=== PATIENT | male | born 1960 | race Caucasian/White ===

== ENCOUNTER 2020-02-11 15:09 | Inpatient (IN) ==
--- NOTE | 2020-02-11 16:18 | XRay Report ---
INDICATION: Abdominal pain and bloating TECHNIQUE: Supine and upright abdomen. COMPARISON: None FINDINGS:Calcification with calcifications consistent with right upper pole renal calculi. No left renal stones identified Bowel gas pattern is unremarkable. No dilated gas-filled small bowel. No air-fluid levels. There is no pneumoperitoneum. No biliary or portal venous gas. No pneumatosis. No detectable appendicolith IMPRESSION: 1. Probable right renal calculus or calculi 2. Nonspecific and nonobstructive bowel gas pattern Interpreted and Authenticated by: Braxton Biggs 02/11/20
[2020-02-11] MEDS ORDERED: KETOROLAC 30 MG/ML VIAL IV ONE (16:42)
[2020-02-11] MEDS ORDERED: diphenhydrAMINE 50 MG/ML VIAL IV ONE (16:42)
[2020-02-11] MEDS ORDERED: PROCHLORPERAZINE 10 MG/2 ML VIAL IV ONE (16:42)
--- NOTE | 2020-02-11 16:50 | Emergency Department Note ---
HPI General Chief complaint: Abdominal Pain Stated complaint: abdominal pain Time Seen by Provider: 02/11/20 15:49 Source: patient Mode of arrival: ambulatory Limitations: no limitations History of Present Illness HPI Narrative: Narrative: 59-year old patient presenting to the [facility] emergency department with a c hief complaint of abdominal pain. Patient reports the pain is acute started today. Patient has had symptoms for several hours. Patient noting pain is sharp cramping sensation. Patient reporting pain is moderate to severe. Patient with exacerbating factors of nothing. Patient with ameliorating factors of nothing. Patient with associated symptoms of some nausea. Patient without associated symptoms of nausea, vomiting, diarrhea, decreased appetite, fever, blood in stool, hematemesis, constipation, dysuria, frequency, hematuria, weight loss, cough, shortness of breath, orthopnea, exertional component. Related Data Previous Rx's Medication Instructions Recorded sildenafil 100 mg tablet 50 mg PO QDAY PRN #30 tab 07/18/19 losartan 50 mg tablet 50 mg PO QDAY #30 tab 08/22/19 Allergies Allergy/AdvReac Type Severity Reaction Status Date / Time No Known Drug Allergies Allergy Verified 02/11/20 15:12 Review of Systems ROS ROS Narrative: Narrative: All systems ED: reviewed and negative except as stated. [facility] Narrative Patient History Narrative: Narrative: Medical/Surgical/Family History All Active Problems (Updated 02/11/20 @ 22:31 by Edwin Kim MD) Abdominal pain (Acute) Acute appendicitis (Acute) Microscopic hematuria (Acute) Hypertension, essential (Chronic) Chronic frontal sinusitis (Chronic) Epidural abscess (Chronic) Osteomyelitis (Chronic) Colon cancer screening (Acute) Erectile dysfunction (Chronic) Elevated blood pressure reading in office without diagnosis of hypertension (Chronic) Tobacco abuse (Chronic) Sinus infection (Chronic) High cholesterol (Chronic) Acid reflux (Chronic) 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 Tums helps. No alarm symptoms. Counseled on common triggers, and to avoid triggers. Counseled on alarm symptoms, and to let me know if he has any. Acute abscess of frontal sinus (Chronic) Blocked tear duct (Chronic) Chronic frontal sinusitis (Chronic) Epidural abscess (Chronic) Left Erectile dysfunction (Chronic) Some improvement with Viagra. Continue Viagra 50 to 100 mg as needed. High cholesterol (Chronic) Hypertension, essential (Chronic) Moderately well controlled per patient. Recently increased losartan to 50 mg daily. Low-sodium diet recommended. Patient to continue monitoring blood pressure at home, will call in 2 weeks to get logs. Continue losartan 50 mg daily, but I expect we will need to increase. Patient did not want to increase today. 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 Treated with 6 weeks of IV antibiotics. No significant sequelae. Sinus infection (Chronic) Tobacco abuse (Chronic) About 1 pack/day for about 45 years. Continues to smoke about 10 cigarettes/day currently CT lung cancer screening negative, will repeat annually. Counseled on smoking cessation, and patient desires to quit, but admits that he is not ready to quit completely. NicoDerm patch was prescribed, but he is not using it much. He knows to not smoke while he is using the patch. He continues to smoke. Surgical History History of surgery (Chronic ~2017) Releasing pressure off of the brain after a severe sinus infection. History of surgery (Chronic ~09/23/15) Neuronavigation, Left maxillary antrotomy. Bilateral ethmoidectomy, Bilateral middle turbinate reduction, Bilateral transnasal frontal sinusostomy, Left orbitiotomy with exploration, Left epidural exploration and biopsy, Left t ransorbital opening of the right frontal sinus Family History Father Colon cancer Liver cancer Mother Dementia Social History Smoking Status: Current every day smoker Alcohol Intake Frequency: does not drink Substance Use: crack/cocaine and other Exam Narrative Narrative: Vital signs are assessed for evidence of hemodynamic instability. General: Alert, interactive, appropriate Head: Atraumatic, normocephalic Eyes: Extraocular movements intact, sclera anicteric, no conjunctival injection Ears: Pinnae normal, no discharge Mouth: Oral mucosa moist, no acute swelling or evidence of infection Nares: No nasal discharge, patent bilaterally Neck: Trachea midline, full range of motion Chest: Symmetrical chest wall rise, breathing normally; nonlabored respirations Abdomen: Patient primarily tenderness to the mid abdomen across through the umbilical area, patient with exam suggestive of peritonitis, nondistended, no masses, no hepatosplenomegaly, no rebound, and no guarding Cardiovascular: Patient with excellent perfusion to the extremities; without tachycardia/bradycardia Skin: Patient without area of erythema, patient is without rash, no ascending lymphangitis or lymphadenopathy Extremities: Full range of motion joints, no obvious deformities Neuro: Alert, oriented x3, cranial nerves II through XII grossly intact, patient without lateralizing findings such as weakness, or abnormal reflexes Psychiatric: Normal affect, normal mood General Limitations: no limitations Course Vital Signs Vital signs: Vital Signs Temperature 97.3 F 02/11/20 15:09 Pulse Rate 86 02/11/20 15:09 Respiratory Rate 18 02/11/20 15:09 Blood Pressure 188/106 02/11/20 15:09 Pulse Oximetry (%) 98 02/11/20 15:09 Temperature 97.3 F 02/11/20 15:09 Pulse Rate 112 H 02/11/20 23:01 Respiratory Rate 18 02/11/20 23:01 Blood Pressure 152/95 02/11/20 23:01 Pulse Oximetry (%) 94 02/11/20 23:01 [facility] MDM Narrative Medical decision making narrative: Initial work-up for this issue included consideration for the following laboratory evaluation CBC, CMP, urinalysis as well as imaging. Differential diagnosis considered included: Obstruction, perforation, mesenteric ischemia, Crohn's disease, ulcerative colitis, viral gastroenteritis, spontaneous bacterial peritonitis, ketoacidosis, adrenal insufficiency, foodborne illness, IBS, constipation, abdominal compartment syndrome, abdominal migraine, chronic abdominal pain, hypercalcemia, hypothyroidism, pulmonary causes, epiploic appendagitis; pancreatitis, peptic ulcer disease, GERD, gastritis, functional dyspepsia, gastroparesis, appendicitis, diverticulitis, nephrolithiasis, pyelonephritis, acute urinary retention, cystitis, colitis. Patient was treated in the emergency department with Benadryl 50 mg IV, Compazine 10 mg IV, and Toradol [address] scan demonstrated appendicitis. Patient treated with Zosyn 4.5 g, Dilaudid 1 mg, and Zofran 4 mg IV. I discussed case with Dr. Ortiz the general surgeon and patient will be admitted for appendectomy. Lab Data Result diagrams: 02/11/20 16:26 02/11/20 16:26 Labs: Lab Results 02/11/20 02/11/20 Range/Units 16:26 16:26 WBC 21.0 H (4.5-11.0) K/mcL RBC 5.01 (4.50-5.90) M/mcL Hgb 14.7 (13.5-16.5) g/dL Hct 45.2 (41.0-55.0) % MCV 90.2 (80.0-100.0) fL MCH 29.3 (26.0-34.0) pg MCHC 32.5 (31.0-36.0) g/dL RDW 13.8 (11.5-14.5) % Plt Count 236 (140-440) K/mcL MPV 10.4 (7.4-10.4) fL Neut % (Auto) 82.6 H (38.0-78.0) % Lymph % (Auto) 9.5 L (15.0-49.0) % [place]age % (Auto) 7.3 (1.0-12.0) % Eos % (Auto) 0.4 (0.0-7.0) % Baso % (Auto) 0.2 (0.0-2.0) % Lymph # (Auto) 2.00 (1.50-4.80) K/mcL [place]age # (Auto) 1.53 H (0.10-0.90) K/mcL Eos # (Auto) 0.08 (0.00-0.70) K/mcL Baso # (Auto) 0.05 (0.00-0.20) K/mcL Absolute Neutrophils 17.34 H (1.80-8.00) K/mcL Sodium 142 (133-145) mmol/L Potassium 4.0 (3.3-5.1) mmol/L Chloride 101 (96-108) mmol/L Carbon Dioxide 29 (22-30) mmol/L Anion Gap 12.0 (8.0-16.0) BUN 12 (6-20) mg/dL Creatinine 0.8 (0.7-1.2) mg/dL GFR Calculation 98 Glucose 126 H (70-105) mg/dL Calcium 9.4 (8.6-10.4) mg/dL Total Bilirubin 0.3 (0.1-1.0) mg/dL AST 13 (<40) U/L ALT 17 (<40) U/L Alkaline Phosphatase 78 (39-117) U/L Total Protein 7.0 (5.9-8.4) gm/dL Albumin 4.1 (3.2-5.2) gm/dL Globulin 2.9 (2.2-3.7) gm/dL Albumin/Globulin Ratio 1.4 (1.0-2.3) Discharge Plan Patient/Caregiver Discharge Instructions 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 only: No Clinical Impression: Abdominal pain Qualifiers: Abdominal location: periumbilical Qualified Code(s): R10.33 - Periumbilical pain Acute appendicitis Qualifiers: Acute appendicitis type: with generalized peritonitis Appendicitis gangrene presence: without gangrene Appendicitis perforation presence: unspecified whether perforation present Appendicitis abscess presence: without abscess Qualified Code(s): K35.20 - Acute appendicitis with generalized peritonitis, without abscess Instructions: Abdominal Pain (ED) Patient Disposition: Xfer As Outpt/Obs ([facility]) Condition: Serious Follow up with: Braxton Ruiz DO [Primary Care Provider] - Prescriptions: No Action sildenafil 100 mg tablet 50 mg PO QDAY PRN (Reason: sexual activity) Qty: 30 RF: 1 losartan 50 mg tablet 50 mg PO QDAY Qty: 30 RF: 1
[2020-02-11 17:18] LABS: Basophils # (Auto) 0.05 K/mcL (0.00-0.20); Basophils % (Auto) 0.2 % (0.0-2.0); Eosinophils # (Auto) 0.08 K/mcL (0.00-0.70); Eosinophils % (Auto) 0.4 % (0.0-7.0); Hematocrit 45.2 % (41.0-55.0); Hemoglobin 14.7 g/dL (13.5-16.5); Lymphocytes % (Auto) 9.5 % (15.0-49.0); Mean Cell Volume 90.2 fL (80.0-100.0); Mean Corpuscular HGB Conc 32.5 g/dL (31.0-36.0); Mean Platelet Volume 10.4 fL (7.4-10.4); Monocytes # (Auto) 1.53 K/mcL (0.10-0.90); Monocytes % (Auto) 7.3 % (1.0-12.0); Neutrophils % (Auto) 82.6 % (38.0-78.0); Platelet Count 236 K/mcL (140-440); RBC 5.01 M/mcL (4.50-5.90); Red Cell Distribution Width 13.8 % (11.5-14.5)
[2020-02-11 17:43] LABS: ALT/SGPT 17 U/L (<40); AST/SGOT 13 U/L (<40); Albumin 4.1 gm/dL (3.2-5.2); Albumin/Globulin Ratio 1.4 (1.0-2.3); Alkaline Phosphatase 78 U/L (39-117); Bilirubin,Total 0.3 mg/dL (0.1-1.0); Blood Urea Nitrogen 12 mg/dL (6-20); Calcium 9.4 mg/dL (8.6-10.4); Carbon Dioxide 29 mmol/L (22-30); Chloride 101 mmol/L (96-108); Globulin 2.9 gm/dL (2.2-3.7); Glomerular Filtration Rate 98; Glucose 126 mg/dL (70-105)
--- NOTE | 2020-02-11 20:20 | Cat Scan Report ---
INDICATION: nephrolithiasis COMPARISON: None. TECHNIQUE: Axial images were obtained through the abdomen and pelvis. Sagittally and coronally reformatted images. FINDINGS: Lung bases:Mild density in the dependent portion of both lower lobes consistent with mild atelectasis. Lung bases are otherwise negative. No pleural fluid. No pericardial fluid. Liver:Negative to the limits of noncontrast enhanced examination. Liver contour is smooth without evidence for cirrhosis Gallbladder, bilary:Mildly calcified gallstones. No gallbladder wall thickening. No pericholecystic fluid. No dilated bile ducts Spleen:No splenomegaly Pancreas:No pancreatic mass. No peripancreatic abnormality Adrenal glands:Negative Kidneys, ureters, bladder: Nonobstructing stone or stones in the midpole of the right kidney. This stone or conglomeration of stones measures 13 x 10 x 11 mm. No significant hydronephrosis. There is also a 2 mm nonobstructing right midpole stone. There are no left renal calculi. No left hydronephrosis. There is no detectable renal mass on this noncontrast-enhanced examination. No hydroureter. No ureteral stone No bladder calculus Gastrointestinal:No significant diverticulosis or evidence for diverticulitis. No detectable colonic mass. There is prominent fecal material within the ascending colon. Constipation No mechanical small bowel obstruction. No small bowel dilatation. Appendix: The appendix is abnormal. There is an appendicolith in the proximal appendix. This measures approximately 10 mm in maximum diameter. Appendix distal to the appendicolith is distended and measures 18 mm. There is periappendiceal inflammatory change. There is no abscess. No significant periappendiceal fluid. Vascular:No abdominal aortic aneurysm Lymphatic:No retroperitoneal adenopathy. No significant mesenteric adenopathy. Mesentery, peritoneum:No free intraperitoneal fluid. No intra-abdominal abscess. No pneumoperitoneum Reproductive:Prostate is not significantly enlarged Musculoskeletal:No lumbar compression fractures. No lytic lesions. Sacrum, pelvis, hips are negative. There is degenerative disc disease at L5-S1. No anterior abdominal wall or inguinal hernia IMPRESSION: 1. Appendicolith and distended appendix with periappendiceal inflammatory change. Appearance is consistent with acute appendicitis. No definite CT evidence for ruptured appendix 2. Cholelithiasis 3. Nonobstructing right renal calculi 4. Probable constipation 5. Degenerative disc disease The exam was performed using radiation dose optimization techniques including, but not limited to, automated exposure control, adjustment of the mA and/or kV according to patient size and use of iterative reconstruction technique. Interpreted and Authenticated by: Braxton Biggs 02/11/20
[2020-02-11] MEDS ORDERED: PIPERACILLIN SODIUM/TAZOBACTAM 4.5 GM in DEXTROSE 5% IN WATER 50 ML IV ONE (22:21)
[2020-02-11] MEDS ORDERED: ONDANSETRON 4 MG/2 ML VIAL IV ONE (22:28)
[2020-02-11] MEDS ORDERED: HYDROmorphone 1 MG/ML SYRINGE IV ONE (22:28)
[2020-02-12] MEDS: PIPERACILLIN SODIUM/TAZOBACTAM 3.375 GM in DEXTROSE 5% IN WATER 50 ML IV SCH ×5 (01:00→23:42)
[2020-02-12] MEDS: 0.9 % SODIUM CHLORIDE 10 ML SYRINGE IV SCH ×4 (05:21→21:14)
--- NOTE | 2020-02-12 05:59 | XRay Report ---
INDICATION: preop TECHNIQUE: AP portable semiupright chest x-ray COMPARISON: None FINDINGS:Chest x-ray is somewhat suboptimal due to AP semiupright position. Routine PA and lateral chest x-ray recommended when clinically appropriate. Lungs:No focal pulmonary parenchymal consolidation or definite infiltrate. Heart, vascular:Heart appears enlarged but this is probably related to magnification. No evidence for congestive heart failure Mediastinum, kendall:No mediastinal widening. No hilar mass Pleura:No pleural fluid. No pleural-based mass or calcification Skeletal:Negative. IMPRESSION: No acute abnormality Interpreted and Authenticated by: Braxton Biggs 02/12/20
[2020-02-12] MEDS: HYDROmorphone 1 MG/ML SYRINGE IV PRN ×2 (07:52→21:11)
[2020-02-12] MEDS: DOCUSATE SODIUM 100 MG CAPSULE PO SCH ×2 (08:27→21:12)
[2020-02-12] MEDS: 0.9 % SODIUM CHLORIDE 1,000 ML IV SCH ×3 (08:28→21:12)
--- NOTE | 2020-02-12 12:22 | General Surg History&Physical ---
HPI History of Present Illness Patient information: Note initiated : 02/12/20 at 12:14 pm Service Date, if different from initiated Date: [] Patient: Ruddy Dominique a 59 y/o M admitted on 02/12/20 for abdominal pain. Chief Complaint: [] Chief complaint: abdominal pain with nausea History of present illness: Mr. Dominique is a 59 year old M admitted late last evening with complaint of diffuse abdominal pain of about 12 hours duration. Pain was initially in the lower abdomen and then localized to the right lower quadrant. He had nausea but no vomiting. He has not had diarrhea. He was febrile with a white count of 21,000. His temperature has been up to 101.6. He was admitted, hydrated and started on intravenous antibiotics. He states that he still feels poorly and has pain with any movement. CT of the abdomen shows l arge appendicolith in the proximal appendix with dilated distal appendix with Appendiceal tissue edema compatible with appendicitis. patient is counseled for laparoscopic appendectomy. Review of Systems All systems: reviewed and no additional remarkable complaints except as stated (patient had history of severe sinusitis with ethmoid abscess requiring surgical drainage in 2017) PFSH PFSH All Active Problems Abdominal pain (Acute) Acute appendicitis (Acute) Microscopic hematuria (Acute) Hypertension, essential (Chronic) Chronic frontal sinusitis (Chronic) Epidural abscess (Chronic) Osteomyelitis (Chronic) Colon cancer screening (Acute) Erectile dysfunction (Chronic) Elevated blood pressure reading in office without diagnosis of hypertension (Chronic) Tobacco abuse (Chronic) Sinus infection (Chronic) High cholesterol (Chronic) Acid reflux (Chronic) 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 Tums helps. No alarm symptoms. Counseled on common triggers, and to avoid triggers. Counseled on alarm symptoms, and to let me know if he has any. Acute abscess of frontal sinus (Chronic) Blocked tear duct (Chronic) Chronic frontal sinusitis (Chronic) Epidural abscess (Chronic) Left Erectile dysfunction (Chronic) Some improvement with Viagra. Continue Viagra 50 to 100 mg as needed. High cholesterol (Chronic) Hypertension, essential (Chronic) Moderately well controlled per patient. Recently increased losartan to 50 mg daily. Low-sodium diet recommended. Patient to continue monitoring blood pressure at home, will call in 2 weeks to get logs. Continue losartan 50 mg daily, but I expect we will need to increase. Patient did not want to increase today. 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 Treated with 6 weeks of IV antibiotics. No significant sequelae. Sinus infection (Chronic) Tobacco abuse (Chronic) About 1 pack/day for about 45 years. Continues to smoke about 10 cigarettes/day currently CT lung cancer screening negative, will repeat annually. Counseled on smoking cessation, and patient desires to quit, but admits that he is not ready to quit completely. NicoDerm patch was prescribed, but he is not using it much. He knows to not smoke while he is using the patch. He continues to smoke. Surgical History History of surgery (Chronic ~2016) Releasing pressure off of the brain after a severe sinus infection. History of surgery (Chronic ~09/23/15) Neuronavigation, Left maxillary antrotomy. Bilateral ethmoidectomy, Bilateral middle turbinate reduction, Bilateral transnasal frontal sinusostomy, Left orbitiotomy with exploration, Left epidural exploration and biopsy, Left transorbital opening of the right frontal sinus Family History Father Colon cancer Liver cancer Mother Dementia Social History marital status: occupational status: employed occupation: [employer] smoking status: Current every day smoker tobacco type: cigarettes per day: 2 pack-years: 25 alcohol intake frequency: does not drink substance use type: crack/cocaine and other details: Meth MEDS/ALLERGIES Home Medications and Allergies Home Medications Medication Instructions Recorded Confirmed Type sildenafil 100 mg tablet 50 mg PO QDAY PRN #30 tab 07/18/19 02/11/20 Rx losartan 50 mg tablet 50 mg PO QDAY #30 tab 08/22/19 02/11/20 Rx Allergies Allergy/AdvReac Type Severity Reaction Status Date / Time No Known Drug Allergies Allergy Verified 02/11/20 15:12 Physical Examination Vital Signs Vital signs: Temp Pulse Resp BP Pulse Ox 101.6 F H 120 H 20 106/60 92 02/12/20 07:54 02/12/20 07:57 02/12/20 07:57 02/12/20 07:54 02/12/20 07:57 General physical appearance General physical exam: well developed, well nourished, moderate distress and moderate pain Eyes Eye exam: PERRL and normal ocular movement ENT ENT exam: normal mucosa Head Head exam IM: Present atraumatic, normal inspection and normocephalic Neck Neck exam: no masses, no bruits, trachea midline, no lymphadenopathy and no venous distension Cardiovascular Cardiovascular exam IM: Present normal rate and rhythm, RRR, +S1 and +S2; Absent JVD and systolic murmur Respiratory Respiratory exam: normal expansion, normal respiratory effort and clear to auscultation Abdomen Abdomen: Present tender (right lower quadrant tenderness with guarding), bowel sounds (hypoactive bowel sounds), masses (no palpable masses) and guarding Integumentary Integumentary: Present no rash, no growths and no abnormal pigmentation Neurologic Neurologic: Present normal coordination and normal sensation; Absent memory loss Musculoskeletal Musculoskeletal: Present normal gait, normal posture and other Psychiatric Psychiatric: Present oriented to time, oriented to person, oriented to place, speech is normal, memory intact and other Results Labs Result diagrams: 02/11/20 16:26 02/11/20 16:26 Labs: Abnormal lab results 02/11/20 02/11/20 Range/Units 16:26 16:26 WBC 21.0 H (4.5-11.0) K/mcL Neut % (Auto) 82.6 H (38.0-78.0) % Lymph % (Auto) 9.5 L (15.0-49.0) % [place] # (Auto) 1.53 H (0.10-0.90) K/mcL Absolute Neutrophils 17.34 H (1.80-8.00) K/mcL Glucose 126 H (70-105) mg/dL Diabetes panel 02/11/20 Range/Units 16:26 Sodium 142 (133-145) mmol/L Potassium 4.0 (3.3-5.1) mmol/L Chloride 101 (96-108) mmol/L Carbon Dioxide 29 (22-30) mmol/L BUN 12 (6-20) mg/dL Creatinine 0.8 (0.7-1.2) mg/dL Glucose 126 H (70-105) mg/dL Calcium 9.4 (8.6-10.4) mg/dL AST 13 (<40) U/L ALT 17 (<40) U/L Alkaline Phosphatase 78 (39-117) U/L Total Protein 7.0 (5.9-8.4) gm/dL Albumin 4.1 (3.2-5.2) gm/dL Calcium panel 02/11/20 Range/Units 16:26 Calcium 9.4 (8.6-10.4) mg/dL Albumin 4.1 (3.2-5.2) gm/dL Pituitary panel 02/11/20 Range/Units 16:26 Sodium 142 (133-145) mmol/L Potassium 4.0 (3.3-5.1) mmol/L Chloride 101 (96-108) mmol/L Carbon Dioxide 29 (22-30) mmol/L BUN 12 (6-20) mg/dL Creatinine 0.8 (0.7-1.2) mg/dL Glucose 126 H (70-105) mg/dL Calcium 9.4 (8.6-10.4) mg/dL Adrenal panel 02/11/20 Range/Units 16:26 Sodium 142 (133-145) mmol/L Potassium 4.0 (3.3-5.1) mmol/L Chloride 101 (96-108) mmol/L Carbon Dioxide 29 (22-30) mmol/L BUN 12 (6-20) mg/dL Creatinine 0.8 (0.7-1.2) mg/dL Glucose 126 H (70-105) mg/dL Calcium 9.4 (8.6-10.4) mg/dL Total Bilirubin 0.3 (0.1-1.0) mg/dL AST 13 (<40) U/L ALT 17 (<40) U/L Alkaline Phosphatase 78 (39-117) U/L Total Protein 7.0 (5.9-8.4) gm/dL Albumin 4.1 (3.2-5.2) gm/dL All other labs normal. A/P Assessment and plan (1) Acute appendicitis: Status: Acute Qualifiers: Acute appendicitis type: with generalized peritonitis Appendicitis abscess presence: without abscess Appendicitis gangrene presence: without gangrene Appendicitis perforation presence: unspecified whether perforation present Qualified Code(s): K35.20 - Acute appendicitis with generalized peritonitis, without abscess (2) Hypertension, essential: Status: Chronic Comment: Moderately well controlled per patient. Recently increased losartan to 50 mg d aily. Low-sodium diet recommended. Patient to continue monitoring blood pressure at home, will call in 2 weeks to get logs. Continue losartan 50 mg daily, but I expect we will need to increase. Patient did not want to increase today. (3) Chronic frontal sinusitis: Status: Chronic Narrative A/P Narrative: patient is on Zosyn antibiotics and is continuing to be dehydrated. Patient counseled for laparoscopic appendectomy Time Spent With Patient Time: Total time spent is greater than 50% in coordination of care (as docum ented) at patient's floor/unit and/or counseling patient:
[2020-02-12] MEDS ORDERED: PROPOFOL 200 MG/20 ML VIAL IV ONE (13:06)
[2020-02-12] MEDS ORDERED: DEXAMETHASONE 10 MG/ML VIAL ONE (13:06)
[2020-02-12] MEDS ORDERED: KETOROLAC 30 MG/ML VIAL ONE (13:06)
[2020-02-12] MEDS ORDERED: GLYCOPYRROLATE 0.2 MG/ML VIAL IV ONE (13:06)
[2020-02-12] MEDS ORDERED: fentaNYL 100 MCG/2 ML VIAL IV ONE (13:06)
[2020-02-12] MEDS ORDERED: ONDANSETRON 4 MG/2 ML VIAL ONE (13:06)
[2020-02-12] MEDS ORDERED: MIDAZOLAM 2 MG/2 ML VIAL ONE (13:06)
[2020-02-12] MEDS ORDERED: PHENYLEPHRINE 10 MG/ML VIAL ONE (13:06)
[2020-02-12] MEDS ORDERED: LIDOCAINE HCL/PF 100 MG/5 ML SYRINGE IV ONE (13:06)
[2020-02-12] MEDS ORDERED: HYDROmorphone 1 MG/ML SYRINGE ONE (13:06)
[2020-02-12] MEDS ORDERED: ROCURONIUM 10 MG/ML ML IV ONE (13:06)
[2020-02-12] MEDS ORDERED: SUCCINYLCHOLINE 20 MG/ML ML IV ONE (13:06)
[2020-02-12] MEDS ORDERED: KETAMINE 100 MG/ML ML ONE (13:06)
[2020-02-12] MEDS ORDERED: SUGAMMADEX SODIUM 200 MG/2 ML VIAL IV ONE (13:06)
[2020-02-12] MEDS ORDERED: METHOCARBAMOL 1,000 MG/10 ML VIAL IV PRN (13:40)
[2020-02-12] MEDS ORDERED: HYDROmorphone 0.5 MG/0.5 ML SYRINGE IV PRN (13:40)
[2020-02-12] MEDS ORDERED: LACTATED RINGERS 250 ML IV PRN (13:40)
[2020-02-12] MEDS ORDERED: IPRATROPIUM/ALBUTEROL 3 ML AMPUL.NEB NEB PRN (13:40)
[2020-02-12] MEDS ORDERED: ACETAMINOPHEN 1,000 MG/100 ML BAG IV ONE (13:40)
[2020-02-12] MEDS ORDERED: MEPERIDINE 25 MG/ML SYRINGE IV PRN (13:40)
[2020-02-12] MEDS ORDERED: NALOXONE HCL 0.4 MG/ML VIAL IV PRN (13:40)
[2020-02-12] MEDS ORDERED: LABETALOL 5 MG/ML ML IV PRN (13:40)
[2020-02-12] MEDS ORDERED: FLUMAZENIL 0.1 MG/ML ML IV PRN (13:40)
[2020-02-12] MEDS ORDERED: fentaNYL 100 MCG/2 ML VIAL IV PRN (13:40)
[2020-02-12] MEDS ORDERED: BENZOCAINE/MENTHOL 1 LOZENGE PO PRN (13:40)
[2020-02-12] MEDS ORDERED: METOPROLOL TARTRATE 5 MG/5 ML VIAL IV PRN (13:40)
[2020-02-12] MEDS ORDERED: LACTATED RINGERS 1,000 ML IV SCH (13:45)
--- NOTE | 2020-02-12 14:21 | Brief Operative Note ---
Brief Operative Note Date of procedure: 02/12/20 Pre-op diagnosis: ACUTE APPENDICITIS Post-op diagnosis: other (ACUTE APPENDICITIS) Procedure: LAPAROSCOPIC APPENDECTOMY Grafts/Implants: No (ADRI DRAIN #10 X1) Anesthesia: GETA Findings: ACUTE GANGRENOUS APPENDICITIS Complications: none Surgeon: Alin Ortiz Estimated blood loss (cc): 25 Specimens Removed/Pathology: other (APPENDIX) Condition: stable Disposition: PACU
[2020-02-12] MEDS: SENNOSIDES 1 TABLET PO SCH (21:12)
[2020-02-13] MEDS: 0.9 % SODIUM CHLORIDE 1,000 ML IV SCH ×4 (04:19→21:54)
[2020-02-13] MEDS: 0.9 % SODIUM CHLORIDE 10 ML SYRINGE IV SCH ×7 (04:55→23:09)
[2020-02-13] MEDS: PIPERACILLIN SODIUM/TAZOBACTAM 3.375 GM in DEXTROSE 5% IN WATER 50 ML IV SCH ×4 (05:00→23:47)
[2020-02-13 07:59] LABS: Basophils # (Auto) 0.03 K/mcL (0.00-0.20); Basophils % (Auto) 0.2 % (0.0-2.0); Eosinophils # (Auto) 0.01 K/mcL (0.00-0.70); Eosinophils % (Auto) 0.1 % (0.0-7.0); Hematocrit 40.8 % (41.0-55.0); Hemoglobin 12.8 g/dL (13.5-16.5); Lymphocytes # (Auto) 1.82 K/mcL (1.50-4.80); Lymphocytes % (Auto) 9.1 % (15.0-49.0); Mean Cell Volume 92.5 fL (80.0-100.0); Mean Corpuscular HGB Conc 31.4 g/dL (31.0-36.0); Mean Platelet Volume 10.5 fL (7.4-10.4); Monocytes # (Auto) 1.35 K/mcL (0.10-0.90); Monocytes % (Auto) 6.8 % (1.0-12.0); Neutrophils % (Auto) 83.8 % (38.0-78.0); Platelet Count 192 K/mcL (140-440); RBC 4.41 M/mcL (4.50-5.90); Red Cell Distribution Width 14.2 % (11.5-14.5)
[2020-02-13] MEDS: DOCUSATE SODIUM 100 MG CAPSULE PO SCH ×2 (08:59→20:38)
[2020-02-13] MEDS: HYDROmorphone 1 MG/ML SYRINGE IV PRN ×6 (09:15→23:53)
[2020-02-13] MEDS: CALCIUM CARBONATE 500 MG TAB.CHEW CHEWED PRN ×2 (11:21→15:17)
--- NOTE | 2020-02-13 11:36 | General Surgery Progress Note ---
SUBJECTIVE Subjective Patient information: Note initiated : 02/13/20 at 11:31 am Service Date, if different from initiated Date: [] Patient: Ruddy Dominique 59 y/o M admitted on 02/12/20 for abdominal pain. Chief Complaint: [] Principal diagnosis: acute appendicitis Interval history: patient is doing well during the night. He's been somewhat agitated and had mild tachycardia but that has improved. He had maximum temperature of 99.6. He complains of incisional pain only. He he denies nausea. He's tolerated regular diet. White count 20,000, hemoglobin 12.8, hematocrit 40.8. Constitutional Vitals: Vital Signs Temp Pulse Resp BP Pulse Ox 98.7 F 103 H 18 125/70 91 02/13/20 07:26 02/13/20 07:41 02/13/20 07:41 02/13/20 07:26 02/13/20 07:41 Period Temp Pulse Resp BP Sys/Monahan Pulse Ox Last 24 Hr 98.0 F-99.6 F 92-120 - 99-143/61-81 91-98 Intake and Output 02/12/20 02/13/20 02/13/20 21:59 05:59 13:59 Intake Total 4695 1400 1178 Output Total 750 71 530 Balance 3945 1329 648 Weight 230 lb 12.8 oz Intake & Output: Intake & Output 02/12/20 02/13/20 02/13/20 21:59 05:59 13:59 Intake Total 4695 1400 1178 Output Total 750 71 530 Balance 3945 1329 648 Weight 230 lb 12.8 oz Intake: IV 1915 1100 698 Sodium Chloride 0.9% 1,000 ml @ 1765 1000 698 150 mls/hr IV .Q6H40M [facility] Rx#: [id number] Zosyn 3.375 gm In Dextrose 5% 50 100 in Water 50 ml @ 100 mls/hr IV Q6H [facility] Rx#:[id number] Oral 480 300 480 IV - Manual Only 2300 Output: Drainage 70 Lower Medial Abdomen 70 Drainage 130 30 Lower Medial Abdomen 130 30 Urine Catheter Amount 250 Void Amount 350 500 # of times incontinent of urine 1 Estimated Blood Loss 20 Other: Meal Dinner Breakfast Percent of Meal Consumed 100% 100% Feeding Ability Independent Assist with Tray Set Up Urine Appearance Clear Urine Color Dark Yellow Dark Yellow Head Head exam: Present atraumatic, normal inspection and normocephalic Eye Eye exam: Present EOMI and normal appearance Pupils: Present normal accommodation and PERRL ENT ENT exam: Present mucous membranes moist and normal exam Neck Neck exam: Present full ROM and normal inspection; Absent tenderness Respiratory Respiratory exam: Present decreased breath sounds, rales and rhonchi (scattered rhonchi which clear with cough) Cardiovascular Cardiovascular exam: Present normal rate and rhythm, RRR, +S1 and +S2; Absent JVD and rubs GI/Abdominal GI/Abdominal exam: Present normal bowel sounds, distended (mild distention) and tenderness (tenderness over the port sites) Extremities Exam Extremities exam: Present full ROM, normal inspection and neurovascular intact; Absent pedal edema and tenderness Back Exam Back exam: Present full ROM and normal inspection Neurological Exam Neurological exam: Present alert, CN II-XII intact, normal gait and reflexes normal Psychiatric Psychiatric exam: Present flat affect Skin Skin exam: Absent erythema and rash A/P Assessment and plan (1) Acute appendicitis: Status: Acute Qualifiers: Acute appendicitis type: with generalized peritonitis Appendicitis abscess presence: without abscess Appendicitis gangrene presence: without gangrene Appendicitis perforation presence: unspecified whether perforation present Qualified Code(s): K35.20 - Acute appendicitis with generalized peritonitis, without abscess (2) Hypertension, essential: Status: Chronic Comment: Moderately well controlled per patient. Recently increased losartan to 50 mg daily. Low-sodium diet recommended. Patient to continue monitoring blood pressure at home, will call in 2 weeks to get logs. Continue losartan 50 mg daily, but I expect we will need to increase. Patient did not want to increase today. (3) Methamphetamine use: Status: Acute Narrative A/P Narrative: patient is tolerating diet without difficulty. He will be continued on IV antibiotics. Discharge will be delayed until his leukocytosis is improved. Time Spent With Patient Time: Total time spent is greater than 50% in coordination of care (as documented) at patient's floor/unit and/or counseling patient:
[2020-02-13 16:26] LABS: Appearance,Urine CLEAR (Clear); Bilirubin,Urine Negative (Negative); Color,Urine YELLOW; Culture Indicated,Urine No; Glucose,Urine (UA) Negative (Negative); Ketones,Urine Negative (Negative); Leukocyte Esterase,Urine Negative /ug (Negative); Mucus,Urine FEW /hpf; Nitrate,Urine Negative (Negative); Other Crystals,Urine FEW /hpf; Protein,Urine 30 mg/dL (Negative); Specific Gravity,Urine 1.024 (1.000-1.035); Urine Hyaline Cast 3 /lph (0-2); Urine RBC 20 /hpf (0-1); Urine Squamous Epithelial Cell 0 /hpf (0-4); Urine WBC 2 /hpf (0-4)
[2020-02-13] MEDS: ACETAMINOPHEN 1,000 MG/100 ML BAG IV PRN (17:11)
[2020-02-13] MEDS ORDERED: 0.9 % SODIUM CHLORIDE 1,000 ML IV SCH (17:15)
[2020-02-13 20:35] LABS: Appearance,Urine CLEAR (Clear); Bilirubin,Urine Negative (Negative); Color,Urine YELLOW; Culture Indicated,Urine No; Glucose,Urine (UA) Negative (Negative); Ketones,Urine Negative (Negative); Leukocyte Esterase,Urine Negative /ug (Negative); Mucus,Urine FEW /hpf; Nitrate,Urine Negative (Negative); Protein,Urine 30 mg/dL (Negative); Specific Gravity,Urine 1.024 (1.000-1.035); Urine Hyaline Cast 1 /lph (0-2); Urine RBC 19 /hpf (0-1); Urine Squamous Epithelial Cell < 1 /hpf (0-4); Urine WBC 2 /hpf (0-4)
[2020-02-13] MEDS: SENNOSIDES 1 TABLET PO SCH (20:38)
[2020-02-13] MEDS: LOSARTAN 50 MG TABLET PO SCH (20:39)
[2020-02-13] MEDS: ONDANSETRON 4 MG/2 ML VIAL IV PRN (20:46)
[2020-02-13] MEDS: PANTOPRAZOLE 40 MG VIAL IV SCH (21:11)
[2020-02-13] MEDS: METOCLOPRAMIDE 10 MG/2 ML VIAL IV SCH (23:47)
[2020-02-14] MEDS: 0.9 % SODIUM CHLORIDE 1,000 ML IV SCH ×3 (00:26→07:53)
[2020-02-14] MEDS: LORazepam 2 MG/ML VIAL IV PRN ×2 (03:14→20:14)
[2020-02-14] MEDS: METOCLOPRAMIDE 10 MG/2 ML VIAL IV SCH ×4 (05:53→23:36)
[2020-02-14] MEDS: PIPERACILLIN SODIUM/TAZOBACTAM 3.375 GM in DEXTROSE 5% IN WATER 50 ML IV SCH ×4 (05:53→23:36)
[2020-02-14] MEDS: 0.9 % SODIUM CHLORIDE 10 ML SYRINGE IV SCH ×6 (05:53→20:14)
--- NOTE | 2020-02-14 06:34 | XRay Report ---
INDICATION: Fluid overload TECHNIQUE: AP portable chest x-ray COMPARISON: Previous examination dated 02/11/2020 FINDINGS: Lungs:Pulmonary parenchymal densities at both lung bases consistent with atelectasis. Pulmonary vascularity is mildly prominent consistent with pulmonary congestion. There is mild peribronchial thickening. There is no intralobular septal thickening and no focal alveolar infiltrates Heart, vascular:Cardiomegaly may be improved since 02/11/2020. Pulmonary vascularity remains mildly prominent Mediastinum, kendall:No mediastinal widening. No hilar mass Pleura:No pleural fluid. No pleural-based mass or calcification Skeletal:Negative. IMPRESSION: 1. Probable pulmonary congestion 2. Bilateral parenchymal densities most consistent with atelectasis Interpreted and Authenticated by: Braxton Biggs 02/14/20
[2020-02-14 06:53] LABS: Basophils # (Auto) 0.02 K/mcL (0.00-0.20); Basophils % (Auto) 0.1 % (0.0-2.0); Eosinophils # (Auto) 0.04 K/mcL (0.00-0.70); Eosinophils % (Auto) 0.2 % (0.0-7.0); Hematocrit 41.9 % (41.0-55.0); Hemoglobin 13.4 g/dL (13.5-16.5); Lymphocytes # (Auto) 1.61 K/mcL (1.50-4.80); Lymphocytes % (Auto) 9.1 % (15.0-49.0); Mean Cell Volume 89.9 fL (80.0-100.0); Monocytes # (Auto) 1.22 K/mcL (0.10-0.90); Monocytes % (Auto) 6.9 % (1.0-12.0); Neutrophils % (Auto) 83.7 % (38.0-78.0); Platelet Count 242 K/mcL (140-440); RBC 4.66 M/mcL (4.50-5.90); Red Cell Distribution Width 13.9 % (11.5-14.5); WBC 17.6 K/mcL (4.5-11.0)
[2020-02-14] MEDS ORDERED: FUROSEMIDE 40 MG/4 ML VIAL IV ONE (07:30)
[2020-02-14] MEDS ORDERED: IPRATROPIUM/ALBUTEROL 3 ML AMPUL.NEB NEB ONE ×2 (07:37→11:26)
[2020-02-14 07:47] LABS: ALT/SGPT 28 U/L (<40); AST/SGOT 36 U/L (<40); Albumin 3.1 gm/dL (3.2-5.2); Alkaline Phosphatase 100 U/L (39-117); Bilirubin,Direct < 0.2 mg/dL (<0.3); Bilirubin,Total 0.5 mg/dL (0.1-1.0); Blood Urea Nitrogen 20 mg/dL (6-20); Calcium 8.4 mg/dL (8.6-10.4); Carbon Dioxide 25 mmol/L (22-30); Chloride 104 mmol/L (96-108); Globulin 3.2 gm/dL (2.2-3.7); Glomerular Filtration Rate 104; Glucose 117 mg/dL (70-105); Lactate Dehydrogenase 232 U/L (135-225); Phosphorous 1.3 mg/dL (2.5-4.5); Triglycerides 160 mg/dL (<150)
[2020-02-14] MEDS: PANTOPRAZOLE 40 MG VIAL IV SCH ×2 (07:51→20:14)
[2020-02-14] MEDS: LOSARTAN 50 MG TABLET PO SCH (07:54)
[2020-02-14] MEDS: DOCUSATE SODIUM 100 MG CAPSULE PO SCH ×2 (07:54→20:13)
[2020-02-14] MEDS: POTASSIUM PHOSPHATE 40 MEQ in DEXTROSE 5% IN WATER 500 ML IV SCH ×2 (09:39→14:11)
[2020-02-14] MEDS ORDERED: MAGNESIUM SULFATE 4 GM/100 ML BAG IV ONE (10:00)
[2020-02-14] MEDS: IPRATROPIUM/ALBUTEROL 3 ML AMPUL.NEB NEB SCH ×4 (11:20→22:01)
--- NOTE | 2020-02-14 11:33 | General Surgery Progress Note ---
SUBJECTIVE Subjective Patient information: Note initiated : 02/14/20 at 11:27 am Service Date, if different from initiated Date: [] Patient: Ruddy Dominique 59 y/o M admitted on 02/13/20 for abdominal pain. Chief Complaint: [] Principal diagnosis: acute appendicitis Interval history: patient had increasing respiratory difficulty during the night and his sats dropped into the mid 80s. He was placed on supplemental oxygen and was improved. He was noted to have increase respiratory distress. Chest x- ray showed findings compatible with increased lung congestion and atelectasis felt to be due to volume overload. Blood gases pH 7.43, PC O2 40, PO2 69. White blood count 17,600, hemoglobin 13.4, hematocrit 41.9. Serum potassium is 3.9, phosphorus 1.3, magnesium 1.6. Maximum temperature is 100.4. Patient was started on duo nebs every 6 hours and was given IV Lasix. Since the Lasix infusion. He urine output has been 2850 cc. He is also receive potassium phosphate rider and magnesium rider. Clinically now he is better though he still has a coarse tubular breath sounds in both lung mayo, much worse on the right. The left. Constitutional Vitals: Vital Signs Temp Pulse Resp BP Pulse Ox 100.4 F H 122 H 22 114/70 94 02/14/20 07:15 02/14/20 08:00 02/14/20 08:00 02/14/20 07:15 02/14/20 08:00 Period Temp Pulse Resp BP Sys/Monahan Pulse Ox Last 24 Hr 97.4 F-100.4 F 94-122 14-22 114-184/70-112 89-94 Intake and Output 02/13/20 02/14/20 02/14/20 21:59 05:59 13:59 Intake Total 3300 450 290 Output Total 208 711 5327 Balance 2885 -505 -2720 Weight 231 lb 14.4 oz Intake & Output: Intake & Output 02/13/20 02/14/20 02/14/20 21:59 05:59 13:59 Intake Total 3300 450 290 Output Total 936 066 9503 Balance 2885 -505 -2720 Weight 231 lb 14.4 oz Intake: IV 3060 50 50 Sodium Chloride 0.9% 1,000 ml @ 2860 150 mls/hr IV .Q6H40M [facility] Rx#: [id number] Zosyn 3.375 gm In Dextrose 5% 100 50 50 in Water 50 ml @ 100 mls/hr IV Q6H [facility] Rx#:[id number] Oral 240 400 240 Output: Drainage 65 80 160 Lower Medial Abdomen 65 80 160 Void Amount 214 492 7093 Emesis 75 Other: Percent of Meal Consumed 50% Feeding Ability Independent Urine Appearance Clear Clear Clear Urine Color Dark Yellow Dark Yellow Pale Urine Odor Normal Normal Head Head exam: Present atraumatic, normal inspection and normocephalic Eye Eye exam: Present EOMI and normal appearance Pupils: Present normal accommodation and PERRL ENT ENT exam: Present mucous membranes moist and normal exam Respiratory Respiratory exam: Present decreased breath sounds, rales and rhonchi (scattered rhonchi which clear with cough) Cardiovascular Cardiovascular exam: Present normal rate and rhythm, RRR, +S1 and +S2; Absent JVD and rubs GI/Abdominal GI/Abdominal exam: Present normal bowel sounds, distended (mild distention) and tenderness (tenderness over the port sites) Extremities Exam Extremities exam: Present full ROM, normal inspection and neurovascular intact; Absent pedal edema and tenderness Back Exam Back exam: Present full ROM and normal inspection Neurological Exam Neurological exam: Present alert, CN II-XII intact, normal gait and reflexes normal Skin Skin exam: Absent erythema and rash A/P Assessment and plan (1) Acute appendicitis: Status: Acute Qualifiers: Acute appendicitis type: with generalized peritonitis Appendicitis abscess presence: without abscess Appendicitis gangrene presence: without gangrene Appendicitis perforation presence: unspecified whether perforation present Qualified Code(s): K35.20 - Acute appendicitis with generalized peritonitis, without abscess (2) At risk for fluid volume overload: Status: Acute (3) Methamphetamine use: Status: Acute (4) Hypertension, essential: Status: Chronic Comment: Moderately well controlled per patient. Recently increased losartan to 50 mg daily. Low-sodium diet recommended. Patient to continue monitoring blood pressure at home, will call in 2 weeks to get logs. Continue losartan 50 mg daily, but I expect we will need to increase. Patient did not want to increase today. Narrative A/P Narrative: received Lasix IV every 12 hours Increase duo nebs to every 4 hours Check blood gases at 6 PM today Time Spent With Patient Time: Total time spent is greater than 50% in coordination of care (as documented) at patient's floor/unit and/or counseling patient:
[2020-02-14] MEDS ORDERED: IPRATROPIUM/ALBUTEROL 3 ML AMPUL.NEB NEB SCH (13:00)
--- NOTE | 2020-02-14 14:47 | Surgical Pathology Report ---
Histology Microscopic Diagnosis Specimen A- APPENDIX, APPENDECTOMY: -- SUPPURATIVE ACUTE APPENDICITIS WITH TRANSMURAL INFLAMMATION, PERFORATION AND SEVERE ACUTE PERITONITIS. (ACP:sln) Gross Description Received in formalin labeled appendix, is an 8.4 cm in length and up to 1.3 cm in dimension pink-vega to yeung-vega ruptured appendix. Exudate is present on the exterior of the appendix specimen. The proximal margin is closed with a staple line. There are two ruptured areas, one that is 0.5 cm and the other is up to 1.5 cm in greatest dimension. Double Surface Operator portions submitted in one cassette. (KGW:adj) Electronically Signed Edgardo Garcia MD, FCAP Electronically Signed 02/14/2020 2:46 PM
[2020-02-14] MEDS: SENNOSIDES 1 TABLET PO SCH (20:13)
[2020-02-14] MEDS: FUROSEMIDE 40 MG/4 ML VIAL IV SCH (20:13)
[2020-02-15] MEDS: ACETAMINOPHEN 1,000 MG/100 ML BAG IV PRN (00:25)
[2020-02-15] MEDS: IPRATROPIUM/ALBUTEROL 3 ML AMPUL.NEB NEB SCH ×6 (03:31→22:57)
[2020-02-15] MEDS: 0.9 % SODIUM CHLORIDE 10 ML SYRINGE IV SCH ×6 (05:49→22:42)
[2020-02-15] MEDS: METOCLOPRAMIDE 10 MG/2 ML VIAL IV SCH ×3 (05:50→17:53)
[2020-02-15] MEDS: PIPERACILLIN SODIUM/TAZOBACTAM 3.375 GM in DEXTROSE 5% IN WATER 50 ML IV SCH ×3 (05:50→17:54)
--- NOTE | 2020-02-15 06:23 | XRay Report ---
INDICATION: follow-up of pulmonary congestion TECHNIQUE: AP portable upright chest x-ray COMPARISON: Previous examination dated 02/14/2020, 02/11/2020 FINDINGS: Lungs:Persistent parenchymal densities at both lung bases. Appearance remains consistent with bilateral atelectasis. Findings are unchanged since 02/14/2020 but new since 02/11/2020. No new parenchymal infiltrate Heart, vascular:Pulmonary vascularity is within normal limits. No evidence for significant pulmonary congestion at this time. No pulmonary edema. Mediastinum, kendall:No mediastinal widening. No hilar mass Pleura:No pleural fluid. No pleural-based mass or calcification Skeletal:Negative. IMPRESSION: 1. Bilateral pulmonary parenchymal densities consistent with atelectasis 2. Pulmonary vascularity is unremarkable. No evidence for pulmonary congestion or edema Interpreted and Authenticated by: Braxton Biggs 02/15/20
[2020-02-15 06:24] LABS: Basophils # (Auto) 0.07 K/mcL (0.00-0.20); Basophils % (Auto) 0.4 % (0.0-2.0); Eosinophils # (Auto) 0.29 K/mcL (0.00-0.70); Eosinophils % (Auto) 1.6 % (0.0-7.0); Hematocrit 37.5 % (41.0-55.0); Hemoglobin 12.1 g/dL (13.5-16.5); Lymphocytes # (Auto) 2.15 K/mcL (1.50-4.80); Lymphocytes % (Auto) 11.6 % (15.0-49.0); Mean Cell Volume 89.5 fL (80.0-100.0); Mean Corpuscular HGB Conc 32.3 g/dL (31.0-36.0); Mean Platelet Volume 10.4 fL (7.4-10.4); Monocytes # (Auto) 1.93 K/mcL (0.10-0.90); Monocytes % (Auto) 10.4 % (1.0-12.0); Platelet Count 233 K/mcL (140-440); RBC 4.19 M/mcL (4.50-5.90); Red Cell Distribution Width 13.9 % (11.5-14.5); WBC 18.6 K/mcL (4.5-11.0)
[2020-02-15 07:13] LABS: proBNP 258.6 pg/mL (<125.0)
[2020-02-15 07:17] LABS: ALT/SGPT 33 U/L (<40); AST/SGOT 28 U/L (<40); Albumin 2.6 gm/dL (3.2-5.2); Albumin/Globulin Ratio 0.8 (1.0-2.3); Alkaline Phosphatase 95 U/L (39-117); Bilirubin,Direct 0.2 mg/dL (<0.3); Bilirubin,Total 0.6 mg/dL (0.1-1.0); Blood Urea Nitrogen 15 mg/dL (6-20); Calcium 7.8 mg/dL (8.6-10.4); Carbon Dioxide 28 mmol/L (22-30); Chloride 99 mmol/L (96-108); Globulin 3.2 gm/dL (2.2-3.7); Glomerular Filtration Rate 98; Glucose 108 mg/dL (70-105); Lactate Dehydrogenase 272 U/L (135-225); Phosphorous 1.9 mg/dL (2.5-4.5); Triglycerides 150 mg/dL (<150); Uric Acid 3.2 mg/dL (2.5-8.0)
[2020-02-15] MEDS: DOCUSATE SODIUM 100 MG CAPSULE PO SCH ×2 (07:56→22:42)
[2020-02-15] MEDS: POTASSIUM CHLORIDE 20 MEQ TABLET PO SCH ×2 (07:56→17:53)
[2020-02-15] MEDS: LOSARTAN 50 MG TABLET PO SCH (07:56)
[2020-02-15] MEDS: POTASSIUM PHOSPHATE 40 MEQ in DEXTROSE 5% IN WATER 500 ML IV SCH ×2 (07:57→13:09)
[2020-02-15] MEDS: FUROSEMIDE 40 MG/4 ML VIAL IV SCH (07:57)
[2020-02-15] MEDS: PANTOPRAZOLE 40 MG VIAL IV SCH ×2 (07:57→19:47)
--- NOTE | 2020-02-15 10:47 | General Surgery Progress Note ---
SUBJECTIVE Subjective Patient information: Note initiated : 02/15/20 at 10:40 am Service Date, if different from initiated Date: [] Patient: Ruddy Dominique 59 y/o M admitted on 02/13/20 for abdominal pain. Chief Complaint: [] Principal diagnosis: acute appendicitis Interval history: patient is significantly improved. He has much less respiratory difficulty that his lungs are clearer. His pain is improved. Nausea has improved and he is having some flatus with small bowel movement. ELISEO drainage is serous. PH 7.50, PCO2 42, PO2 70 on 2 L via nasal cannula. Potassium 3.1, BUN 15, creatinine 0.8, phosphorus 1.9, proBNP 258.chest x-ray shows decreased pulmonary congestion but with major bilateral atelectasis without major infiltrate. Constitutional Vitals: Vital Signs Temp Pulse Resp BP Pulse Ox 97.4 F 102 H 18 107/68 96 02/15/20 06:55 02/15/20 07:29 02/15/20 07:29 02/15/20 06:55 02/15/20 07:29 Period Temp Pulse Resp BP Sys/Monahan Pulse Ox Last 24 Hr 96.7 F-100 F 57-108 - 102-138/64-84 91-98 Intake and Output 02/14/20 02/15/20 02/15/20 21:59 05:59 13:59 Intake Total 1129.0909 950 250 Output Total 1630 910 725 Balance -500.9091 40 -475 Weight 230 lb Intake & Output: Intake & Output 02/14/20 02/15/20 02/15/20 21:59 05:59 13:59 Intake Total 1129.0909 950 250 Output Total 1630 910 725 Balance -500.9091 40 -475 Weight 230 lb Intake: IV 709.0909 150 50 Zosyn 3.375 gm In Dextrose 5% 100 50 50 in Water 50 ml @ 100 mls/hr IV Q6H [facility] Rx#:[id number] Potassium Phosphate 40 Meq In 509.0909 Dextrose 5% in Water 500 ml @ 127.273 mls/hr IV Q4H [facility] Rx#: [id number] Oral 420 800 200 Output: Drainage 30 60 Lower Medial Abdomen 30 60 Void Amount 1600 850 725 Other: Urine Appearance Clear Clear Clear Urine Color Pale Dark Yellow Dark Yellow Urine Odor Normal Normal Normal Head Head exam: Present atraumatic, normal inspection and normocephalic Eye Eye exam: Present EOMI and normal appearance Pupils: Present normal accommodation and PERRL ENT ENT exam: Present mucous membranes moist and normal exam Neck Neck exam: Present full ROM and normal inspection; Absent tenderness Respiratory Respiratory exam: Present decreased breath sounds, rales and rhonchi (scattered rhonchi which clear with cough) Cardiovascular Cardiovascular exam: Present normal rate and rhythm, RRR, +S1 and +S2; Absent JVD and rubs GI/Abdominal GI/Abdominal exam: Present normal bowel sounds, distended (mild distention) and tenderness (tenderness over the port sites) Extremities Exam Extremities exam: Present full ROM, normal inspection and neurovascular intact; Absent pedal edema and tenderness Back Exam Back exam: Present full ROM and normal inspection Neurological Exam Neurological exam: Present alert, CN II-XII intact, normal gait and reflexes normal Psychiatric Psychiatric exam: Present flat affect Skin Skin exam: Absent erythema and rash A/P Assessment and plan (1) Acute appendicitis: Status: Acute Qualifiers: Acute appendicitis type: with generalized peritonitis Appendicitis abscess presence: without abscess Appendicitis gangrene presence: without gangrene Appendicitis perforation presence: unspecified whether perforation present Qualified Code(s): K35.20 - Acute appendicitis with generalized peritonitis, without abscess (2) Methamphetamine use: Status: Acute (3) Hypertension, essential: Status: Chronic Comment: Moderately well controlled per patient. Recently increased losartan to 50 mg daily. Low-sodium diet recommended. Patient to continue monitoring blood pressure at home, will call in 2 weeks to get logs. Continue losartan 50 mg daily, but I expect we will need to increase. Patient did not want to increase today. (4) Acute pulmonary edema with congestive heart failure: Status: Acute Narrative A/P Narrative: potassium phosphate rider. Start oral potassium. Chest x-ray in the morning. Advance diet Time Spent With Patient Time: Total time spent is greater than 50% in coordination of care (as documented) at patient's floor/unit and/or counseling patient:
--- NOTE | 2020-02-15 14:19 | Operative Note ---
DATE OF OPERATION: 02/13/2020 DATE OF PROCEDURE: 02/12/2020 PREOPERATIVE DIAGNOSIS: Acute appendicitis. POSTOPERATIVE DIAGNOSIS: Acute appendicitis. PROCEDURE: Laparoscopic appendectomy. SURGEON: Alin Ortiz M.D. FINDINGS: Acute gangrenous appendicitis. DESCRIPTION OF PROCEDURE: Under general anesthesia, the patient's abdomen was prepped and draped in a sterile field. Supraumbilical incision was made. Veress needle was inserted uneventfully. Abdomen was insufflated with 2.5 liters of CO2. A 12 mm port was placed. Laparoscope was placed. Under videoscopic guidance, a 5 mm port was placed in the suprapubic midline and a 12 mm port in the left lower quadrant. The patient was positioned in Trendelenburg position and rotated to the left. There was a moderate amount of purulent fluid in the pelvis and in the right gutter. Using blunt dissection, the cecum was mobilized and an acutely inflamed, gangrenous appendix was noted. It was bluntly dissected until the base could be delineated. It was grasped with a self-retaining grasper. The base and the mesoappendix were transected using the Endo DC stapler. The appendix was placed in an Endopouch and retrieved. Copious irrigation was carried out until it was clear. Because of the purulence, a #10 Alexandre drain was placed in the right gutter and pelvis. It was brought out through the suprapubic port site. CO2 was allowed to escape from the abdomen and the ports were removed. Fascia at the umbilicus was closed with interrupted 0 Vicryl. Skin incisions were closed with mariana. Tegaderm dressings were placed. The drain was secured with 2-0 nylon. The patient tolerated the procedure well. He was awakened, transferred to a bed, and taken to the postanesthetic care unit in satisfactory condition. LCS:jane Job ID: [id number] Doc ID: [id number] Alin Ortiz M.D.
[2020-02-15] MEDS: HYDROmorphone 1 MG/ML SYRINGE IV PRN (18:06)
[2020-02-15] MEDS: ONDANSETRON 4 MG/2 ML VIAL IV PRN (19:47)
[2020-02-15] MEDS: SENNOSIDES 1 TABLET PO SCH (22:36)
[2020-02-15] MEDS: LORazepam 2 MG/ML VIAL IV PRN (22:41)
[2020-02-15] MEDS: 0.9 % SODIUM CHLORIDE 1,000 ML IV SCH (22:43)
[2020-02-16] MEDS: PIPERACILLIN SODIUM/TAZOBACTAM 3.375 GM in DEXTROSE 5% IN WATER 50 ML IV SCH ×5 (00:56→23:28)
[2020-02-16] MEDS: METOCLOPRAMIDE 10 MG/2 ML VIAL IV SCH ×5 (00:57→23:29)
[2020-02-16] MEDS: IPRATROPIUM/ALBUTEROL 3 ML AMPUL.NEB NEB SCH ×6 (03:09→21:36)
[2020-02-16] MEDS: 0.9 % SODIUM CHLORIDE 10 ML SYRINGE IV SCH ×5 (05:06→20:46)
[2020-02-16 07:01] LABS: Basophils # (Auto) 0.05 K/mcL (0.00-0.20); Basophils % (Auto) 0.5 % (0.0-2.0); Eosinophils % (Auto) 0.9 % (0.0-7.0); Hematocrit 36.5 % (41.0-55.0); Lymphocytes # (Auto) 1.33 K/mcL (1.50-4.80); Lymphocytes % (Auto) 12.3 % (15.0-49.0); Mean Cell Volume 88.6 fL (80.0-100.0); Mean Corpuscular HGB Conc 32.9 g/dL (31.0-36.0); Mean Platelet Volume 10.5 fL (7.4-10.4); Monocytes % (Auto) 15.7 % (1.0-12.0); Neutrophils % (Auto) 70.6 % (38.0-78.0); Platelet Count 279 K/mcL (140-440); RBC 4.12 M/mcL (4.50-5.90); Red Cell Distribution Width 13.9 % (11.5-14.5); WBC 10.8 K/mcL (4.5-11.0)
[2020-02-16] MEDS: 0.9 % SODIUM CHLORIDE 1,000 ML IV SCH ×2 (07:39→17:46)
[2020-02-16] MEDS: POTASSIUM CHLORIDE 20 MEQ TABLET PO SCH ×2 (07:44→17:47)
[2020-02-16 07:58] LABS: ALT/SGPT 44 U/L (<40); AST/SGOT 34 U/L (<40); Albumin 2.8 gm/dL (3.2-5.2); Albumin/Globulin Ratio 0.8 (1.0-2.3); Alkaline Phosphatase 126 U/L (39-117); Bilirubin,Direct 0.3 mg/dL (<0.3); Bilirubin,Total 0.7 mg/dL (0.1-1.0); Blood Urea Nitrogen 16 mg/dL (6-20); Calcium 8.2 mg/dL (8.6-10.4); Carbon Dioxide 28 mmol/L (22-30); Chloride 100 mmol/L (96-108); Globulin 3.3 gm/dL (2.2-3.7); Glomerular Filtration Rate 104; Glucose 125 mg/dL (70-105); Lactate Dehydrogenase 233 U/L (135-225); Phosphorous 2.3 mg/dL (2.5-4.5); Triglycerides 136 mg/dL (<150); Uric Acid 2.8 mg/dL (2.5-8.0)
--- NOTE | 2020-02-16 08:39 | XRay Report ---
INDICATION: atelectasis TECHNIQUE: AP portable upright chest x-ray COMPARISON: Previous chest x-rays dated 02/15/2020, 02/14/2020 FINDINGS: Lungs:Density at both lung bases consistent with atelectasis. Appearance is mildly improved. No new focal pulmonary parenchymal infiltrate or mass Heart, vascular:Mild cardiomegaly. No pulmonary edema or pulmonary congestion Mediastinum, kendall:No mediastinal widening. No hilar mass Pleura:No pleural fluid. No pleural-based mass or calcification Skeletal:Negative. IMPRESSION: 1. Slight interval improvement 2. No new abnormality Interpreted and Authenticated by: Braxton Biggs 02/16/20
[2020-02-16] MEDS: FUROSEMIDE 40 MG/4 ML VIAL IV SCH (09:41)
[2020-02-16] MEDS: LOSARTAN 50 MG TABLET PO SCH (09:41)
[2020-02-16] MEDS: PANTOPRAZOLE 40 MG VIAL IV SCH ×2 (09:41→20:46)
[2020-02-16] MEDS: DOCUSATE SODIUM 100 MG CAPSULE PO SCH ×2 (09:42→20:46)
[2020-02-16] MEDS: HYDROmorphone 1 MG/ML SYRINGE IV PRN ×2 (10:47→19:46)
--- NOTE | 2020-02-16 13:03 | General Surgery Progress Note ---
SUBJECTIVE Subjective Patient information: Note initiated : 02/16/20 at 12:58 pm Service Date, if different from initiated Date: [] Patient: Ruddy Dominique 59 y/o M admitted on 02/13/20 for abdominal pain. Chief Complaint: [] Principal diagnosis: acute appendicitis Interval history: patient states that he feels much better. He denies having any respiratory difficulty. He still has a mild cough and audible wheezes. His pain is controlled. He has had flatus and at least 3 bowel movements. He denies nausea, though he did have some vomiting last evening. White blood count 10.8, hemoglobin 12, hematocrit 36.5, potassium 3.5, BUN 16, creatinine 0.7, phosphorus 2.3, magnesium 1.8. Chest x-ray shows bibasilar atelectasis but improved from last evening. Constitutional Vitals: Vital Signs Temp Pulse Resp BP Pulse Ox 97.1 F 85 18 111/65 95 02/16/20 11:25 02/16/20 11:25 02/16/20 11:25 02/16/20 11:25 02/16/20 11:25 Period Temp Pulse Resp BP Sys/Monahan Pulse Ox Last 24 Hr 97.1 F-99.2 F 85-111 18-20 108-130/65-80 92-97 Intake and Output 02/15/20 02/16/20 02/16/20 21:59 05:59 13:59 Intake Total 50 1650 1065 Output Total 760 300 550 Balance -710 1350 515 Weight 217 lb 6.4 oz Intake & Output: Intake & Output 02/15/20 02/16/20 02/16/20 21:59 05:59 13:59 Intake Total 50 1650 1065 Output Total 760 300 550 Balance -710 1350 515 Weight 217 lb 6.4 oz Intake: IV 50 50 825 Sodium Chloride 0.9% 1,000 ml @ 775 100 mls/hr IV .Q10H [facility] Rx#: [id number] Zosyn 3.375 gm In Dextrose 5% 50 50 50 in Water 50 ml @ 100 mls/hr IV Q6H [facility] Rx#:[id number] Oral 1600 240 Output: Drainage 110 50 Lower Medial Abdomen 110 50 Void Amount 650 300 500 Other: Urine Appearance Clear Clear Urine Color Tea Colored Tea Colored Tea Colored Urine Odor Normal Strong Stool Size Moderate Small Moderate Stool Color Brown Brown Black Stool Consistency Formed Loose Loose # Unmeasured Emesis 1 # Bowel Movements 1 # of times incontinent of 1 Bowels Head Head exam: Present atraumatic, normal inspection and normocephalic Eye Eye exam: Present EOMI and normal appearance Pupils: Present normal accommodation and PERRL ENT ENT exam: Present mucous membranes moist and normal exam Respiratory Respiratory exam: Present decreased breath sounds, rales and rhonchi (scattered rhonchi which clear with cough) Cardiovascular Cardiovascular exam: Present normal rate and rhythm, RRR, +S1 and +S2; Absent JVD and rubs GI/Abdominal GI/Abdominal exam: Present normal bowel sounds, distended (mild distention) and tenderness (tenderness over the port sites) Extremities Exam Extremities exam: Present full ROM, normal inspection and neurovascular intact; Absent pedal edema and tenderness Back Exam Back exam: Present full ROM and normal inspection Neurological Exam Neurological exam: Present alert, CN II-XII intact, normal gait and reflexes normal Psychiatric Psychiatric exam: Present flat affect Skin Skin exam: Absent erythema and rash A/P Assessment and plan (1) Acute appendicitis: Status: Acute Qualifiers: Acute appendicitis type: with generalized peritonitis Appendicitis abscess presence: without abscess Appendicitis gangrene presence: without gangrene Appendicitis perforation presence: unspecified whether perforation present Qualified Code(s): K35.20 - Acute appendicitis with generalized peritonitis, without abscess (2) Acute pulmonary edema with congestive heart failure: Status: Acute (3) Methamphetamine use: Status: Acute (4) Hypertension, essential: Status: Chronic Comment: Moderately well controlled per patient. Recently increased losartan to 50 mg daily. Low-sodium diet recommended. Patient to continue monitoring blood pressure at home, will call in 2 weeks to get logs. Continue losartan 50 mg daily, but I expect we will need to increase. Patient did not want to increase today. Narrative A/P Narrative: K-Phos rider 1. Magnesium rider 1. Recheck labs in the morning Time Spent With Patient Time: Total time spent is greater than 50% in coordination of care (as documented) at patient's floor/unit and/or counseling patient:
[2020-02-16] MEDS: SENNOSIDES 1 TABLET PO SCH (20:46)
[2020-02-17] MEDS: IPRATROPIUM/ALBUTEROL 3 ML AMPUL.NEB NEB SCH ×6 (03:33→22:15)
[2020-02-17] MEDS: 0.9 % SODIUM CHLORIDE 1,000 ML IV SCH ×2 (04:51→12:59)
[2020-02-17] MEDS: PIPERACILLIN SODIUM/TAZOBACTAM 3.375 GM in DEXTROSE 5% IN WATER 50 ML IV SCH ×4 (05:45→23:35)
[2020-02-17] MEDS: METOCLOPRAMIDE 10 MG/2 ML VIAL IV SCH ×4 (05:45→23:35)
[2020-02-17] MEDS: 0.9 % SODIUM CHLORIDE 10 ML SYRINGE IV SCH ×3 (05:45→21:30)
[2020-02-17] MEDS: HYDROmorphone 1 MG/ML SYRINGE IV PRN ×5 (06:22→22:40)
[2020-02-17] MEDS: POTASSIUM CHLORIDE 20 MEQ TABLET PO SCH ×2 (08:49→17:13)
[2020-02-17] MEDS: DOCUSATE SODIUM 100 MG CAPSULE PO SCH ×2 (08:50→21:30)
[2020-02-17] MEDS: LOSARTAN 50 MG TABLET PO SCH (08:50)
[2020-02-17] MEDS: FUROSEMIDE 40 MG/4 ML VIAL IV SCH (08:51)
[2020-02-17] MEDS: PANTOPRAZOLE 40 MG VIAL IV SCH ×2 (09:21→21:30)
[2020-02-17 10:51] LABS: Basophils # (Auto) 0.02 K/mcL (0.00-0.20); Basophils % (Auto) 0.2 % (0.0-2.0); Eosinophils # (Auto) 0.29 K/mcL (0.00-0.70); Eosinophils % (Auto) 3.1 % (0.0-7.0); Hematocrit 36.2 % (41.0-55.0); Hemoglobin 11.7 g/dL (13.5-16.5); Lymphocytes # (Auto) 2.09 K/mcL (1.50-4.80); Lymphocytes % (Auto) 22.3 % (15.0-49.0); Mean Cell Volume 90.5 fL (80.0-100.0); Mean Corpuscular HGB Conc 32.3 g/dL (31.0-36.0); Mean Platelet Volume 10.4 fL (7.4-10.4); Monocytes # (Auto) 1.45 K/mcL (0.10-0.90); Monocytes % (Auto) 15.4 % (1.0-12.0); Platelet Count 320 K/mcL (140-440); Red Cell Distribution Width 14.1 % (11.5-14.5); WBC 9.4 K/mcL (4.5-11.0)
[2020-02-17 11:01] LABS: ALT/SGPT 37 U/L (<40); AST/SGOT 25 U/L (<40); Albumin 2.5 gm/dL (3.2-5.2); Albumin/Globulin Ratio 0.7 (1.0-2.3); Alkaline Phosphatase 122 U/L (39-117); Bilirubin,Direct 0.3 mg/dL (<0.3); Bilirubin,Total 0.7 mg/dL (0.1-1.0); Blood Urea Nitrogen 15 mg/dL (6-20); Carbon Dioxide 27 mmol/L (22-30); Chloride 104 mmol/L (96-108); Globulin 3.5 gm/dL (2.2-3.7); Glomerular Filtration Rate 104; Glucose 114 mg/dL (70-105); Lactate Dehydrogenase 233 U/L (135-225); Phosphorous 2.3 mg/dL (2.5-4.5); Triglycerides 142 mg/dL (<150); Uric Acid 2.6 mg/dL (2.5-8.0)
--- NOTE | 2020-02-17 12:05 | General Surgery Progress Note ---
SUBJECTIVE Subjective Patient information: Note initiated : 02/17/20 at 12:05 pm Service Date, if different from initiated Date: [] Patient: Ruddy Dominique 59 y/o M admitted on 02/13/20 for abdominal pain. Chief Complaint: [] Principal diagnosis: acute appendicitis Interval history: patient feels much better. He is still weak. His temperature is controlled. He had some nausea earlier today but that has resolved. He is having flatus and bowel movements. He still has mild abdominal distention. White blood count 9.4, hemoglobin 11.7, hematocrit 36, potassium 4, phosphorus 2.. Constitutional Vitals: Vital Signs Temp Pulse Resp BP Pulse Ox 97.7 F 88 18 118/69 96 02/17/20 06:53 02/17/20 11:08 02/17/20 11:08 02/17/20 06:53 02/17/20 08:00 Period Temp Pulse Resp BP Sys/[place] Pulse Ox Last 24 Hr 97.7 F-99.6 F 79-102 14-91 97-122/56-77 90-98 Intake and Output 02/16/20 02/17/20 02/17/20 21:59 05:59 13:59 Intake Total 1350 1200 350 Output Total 15 250 615 Balance 1335 950 -265 Weight 222 lb 11.2 oz Intake & Output: Intake & Output 02/16/20 02/17/20 02/17/20 21:59 05:59 13:59 Intake Total 1350 1200 350 Output Total 15 250 615 Balance 1335 950 -265 Weight 222 lb 11.2 oz Intake: IV 1050 1050 50 Sodium Chloride 0.9% 1,000 ml @ 1000 1000 100 mls/hr IV .Q10H AALIYAH Rx#: [id number] Zosyn 3.375 gm In Dextrose 5% 50 50 50 in Water 50 ml @ 100 mls/hr IV Q6H AALIYAH Rx#:[id number] Oral 300 150 300 Output: Drainage 50 Lower Medial Abdomen 50 Drainage 15 15 Lower Medial Abdomen 15 15 Void Amount 200 600 Other: Meal Dinner Breakfast Percent of Meal Consumed 5% 0% Feeding Ability Independent Independent Urine Appearance Clear Clear Urine Color [place] Bright Yellow Urine Odor Strong Stool Size Moderate Stool Color Black Stool Consistency Loose Head Head exam: Present atraumatic, normal inspection and normocephalic Eye Eye exam: Present EOMI and normal appearance Pupils: Present normal accommodation and PERRL ENT ENT exam: Present mucous membranes moist and normal exam Neck Neck exam: Present full ROM and normal inspection; Absent tenderness Respiratory Respiratory exam: Present normal respiratory exam and CTAB; Absent accessory muscle use, rales, rhonchi and wheezes Cardiovascular Cardiovascular exam: Present normal rate and rhythm, RRR, +S1 and +S2 GI/Abdominal GI/Abdominal exam: Present normal bowel sounds, soft and distended; Absent tenderness Extremities Exam Extremities exam: Present full ROM, normal inspection and neurovascular intact; Absent pedal edema and tenderness Back Exam Back exam: Present full ROM and normal inspection Neurological Exam Neurological exam: Present alert, CN II-XII intact, normal gait and reflexes normal Psychiatric Psychiatric exam: Present flat affect Skin Skin exam: Absent erythema and rash A/P Assessment and plan (1) Acute appendicitis: Status: Acute Qualifiers: Acute appendicitis type: with generalized peritonitis Appendicitis abscess presence: without abscess Appendicitis gangrene presence: without gangrene Appendicitis perforation presence: unspecified whether perforation present Qualified Code(s): K35.20 - Acute appendicitis with generalized peritonitis, without abscess (2) Acute pulmonary edema with congestive heart failure: Status: Acute (3) Methamphetamine use: Status: Acute (4) Hypertension, essential: Status: Chronic Comment: Moderately well controlled per patient. Recently increased losartan to 50 mg daily. Low-sodium diet recommended. Patient to continue monitoring blood pressure at home, will call in 2 weeks to get logs. Continue losartan 50 mg daily, but I expect we will need to increase. Patient did not want to increase today. Narrative A/P Narrative: patient is significantly improved. We'll continue present treatment with plans for discharge tomorrow on oral antibiotics. Time Spent With Patient Time: Total time spent is greater than 50% in coordination of care (as documented) at patient's floor/unit and/or counseling patient:
[2020-02-17] MEDS: CALCIUM CARBONATE 500 MG TAB.CHEW CHEWED PRN (13:04)
[2020-02-17] MEDS: SENNOSIDES 1 TABLET PO SCH (21:30)
[2020-02-18] MEDS: HYDROmorphone 1 MG/ML SYRINGE IV PRN ×2 (02:18→08:31)
[2020-02-18] MEDS: 0.9 % SODIUM CHLORIDE 1,000 ML IV SCH ×2 (02:21→16:44)
[2020-02-18] MEDS: IPRATROPIUM/ALBUTEROL 3 ML AMPUL.NEB NEB SCH ×4 (04:27→16:46)
[2020-02-18] MEDS: METOCLOPRAMIDE 10 MG/2 ML VIAL IV SCH ×2 (05:53→11:41)
[2020-02-18] MEDS: PIPERACILLIN SODIUM/TAZOBACTAM 3.375 GM in DEXTROSE 5% IN WATER 50 ML IV SCH ×2 (05:53→11:42)
[2020-02-18] MEDS: 0.9 % SODIUM CHLORIDE 10 ML SYRINGE IV SCH ×2 (05:54→16:45)
[2020-02-18 06:48] LABS: Basophils # (Auto) 0.09 K/mcL (0.00-0.20); Basophils % (Auto) 0.8 % (0.0-2.0); Eosinophils # (Auto) 0.26 K/mcL (0.00-0.70); Eosinophils % (Auto) 2.4 % (0.0-7.0); Hematocrit 33.1 % (41.0-55.0); Hemoglobin 10.5 g/dL (13.5-16.5); Lymphocytes # (Auto) 1.81 K/mcL (1.50-4.80); Mean Cell Volume 92.5 fL (80.0-100.0); Mean Corpuscular HGB Conc 31.7 g/dL (31.0-36.0); Mean Platelet Volume 10.3 fL (7.4-10.4); Monocytes # (Auto) 1.63 K/mcL (0.10-0.90); Monocytes % (Auto) 15.3 % (1.0-12.0); Neutrophils % (Auto) 64.5 % (38.0-78.0); Platelet Count 319 K/mcL (140-440); RBC 3.58 M/mcL (4.50-5.90); Red Cell Distribution Width 14.5 % (11.5-14.5); WBC 10.7 K/mcL (4.5-11.0)
[2020-02-18 07:09] LABS: ALT/SGPT 27 U/L (<40); AST/SGOT 16 U/L (<40); Albumin 2.4 gm/dL (3.2-5.2); Albumin/Globulin Ratio 0.7 (1.0-2.3); Alkaline Phosphatase 95 U/L (39-117); Bilirubin,Direct < 0.2 mg/dL (<0.3); Bilirubin,Total 0.4 mg/dL (0.1-1.0); Blood Urea Nitrogen 14 mg/dL (6-20); Calcium 8.3 mg/dL (8.6-10.4); Carbon Dioxide 22 mmol/L (22-30); Chloride 104 mmol/L (96-108); Globulin 3.4 gm/dL (2.2-3.7); Glomerular Filtration Rate 104; Glucose 97 mg/dL (70-105); Lactate Dehydrogenase 228 U/L (135-225); Phosphorous 2.7 mg/dL (2.5-4.5); Triglycerides 140 mg/dL (<150); Uric Acid 3.1 mg/dL (2.5-8.0)
[2020-02-18] MEDS: DOCUSATE SODIUM 100 MG CAPSULE PO SCH (08:12)
[2020-02-18] MEDS: POTASSIUM CHLORIDE 20 MEQ TABLET PO SCH (08:19)
[2020-02-18] MEDS: LOSARTAN 50 MG TABLET PO SCH (08:19)
[2020-02-18] MEDS: PANTOPRAZOLE 40 MG VIAL IV SCH (08:20)
[2020-02-18] MEDS: FUROSEMIDE 40 MG/4 ML VIAL IV SCH (08:25)
--- NOTE | 2020-02-18 13:54 | Discharge Summary ---
Discharge Provider Provider Patient information: Note initiated : 02/18/20 at 1:45 pm Service Date, if different from initiated Date: [] Patient: Ruddy Dominique 60 y/o M admitted on 02/13/20 for abdominal pain. Chief Complaint: [] Date of admission: 02/13/20 15:32 Discharge date: 02/18/20 Primary care physician: Braxton Ruiz DO Admitting clinician: Alin Ortiz Attending physician on admission: Alin Ortiz Consults: 02/12/20 08:41 Consult to Physician [CONS] Routine Comment: Consulting Provider: Alin Ortiz Reason For Exam: Physician to Consult Attending physician on discharge: Alin Ortiz Discharging clinician: Alin Ortiz COURSE Hospital Course Hospital course: 60-year-old male admitted on 10 February with right lower quadrant pain, nausea and vomiting, temperature elevation to 101.6 and white blood count of 21,000. CT confirmed acute appendicitis. The patient was mildly dehydrated, so he was hydrated and started on antibiotics. On 11 February he had laparoscopic appendectomy which showed acute gangrenous appendicitis with localized peritonitis. The pelvis and right gutter were drained. During the late evening of 11 February he developed mild hypoxemia and increased agitation. Chest x-ray showed acute pulmonary congestion. His O2 saturation was decreased. He was felt to have acute pulmonary edema and was diuresed with Lasix and oxygen was started. He also was given DuoNeb. He improved over the next 2 days and by 15 February. He was much improved. His oxygenation was normal and his white blood count was down to 10.8. His diet has been advanced at least tolerating regular diet. He is having regular bowel movements. Also. Discharge diagnosis: acute gangrenous appendicitis Secondary discharge diagnosis: methamphetamine use Mild cardiomyopathy. Acute pulmonary edema with hypoxemia Reason for admission: acute appendicitis Procedures: laparoscopic appendectomy Pertinent studies/significant findings: CT of abdomen and pelvis with IV contrast Complications: acute pulmonary congestion postoperatively Time Spent with Patient Time attestation: Total time spent providing and/or coordinating discharge services: Physical Examination Vital Signs Vital signs: Temp Pulse Resp BP Pulse Ox 98.8 F 89 14 120/64 93 02/18/20 12:00 02/18/20 12:06 02/18/20 12:06 02/18/20 12:00 02/18/20 12:00 General physical appearance General physical exam: well developed, well nourished, no distress and moderate pain Eyes Eye exam: PERRL and normal ocular movement Head Head exam IM: Present atraumatic, normal inspection and normocephalic Neck Neck exam: no masses, no bruits, trachea midline, no lymphadenopathy and no venous distension Cardiovascular Cardiovascular exam IM: Present normal rate and rhythm, RRR, +S1 and +S2; Absent JVD and systolic murmur Respiratory Respiratory exam: normal expansion, normal respiratory effort and clear to auscu ltation Abdomen Abdomen: Present soft, bowel sounds (normal bowel sounds) and surgical scars (all port sites are healed) Integumentary Integumentary: Present no rash, no growths and no abnormal pigmentation Neurologic Neurologic: Present normal coordination and normal sensation; Absent memory loss Musculoskeletal Musculoskeletal: Present normal gait, normal posture and other Psychiatric Psychiatric: Present oriented to time, oriented to person, oriented to place, speech is normal, memory intact and other Discharge Plan Patient/Caregiver Discharge Instructions Activity: increase activity as tolerated Diet: Regular Diet Instructions: Abdominal Pain (ED) Prescriptions: New hydrocodone-acetaminophen 10-325 mg Tablet 1 tab PO Q4H PRN (Reason: Pain) Qty: 40 RF: 0 levofloxacin [levofloxacin] 750 MG tablet 750 mg PO DAILY Qty: 10 RF: 0 No Action sildenafil 100 mg tablet 50 mg PO QDAY PRN (Reason: sexual activity) Qty: 30 RF: 1 losartan 50 mg tablet 50 mg PO QDAY Qty: 30 RF: 1 Follow Up Plan Follow up with: Braxton Ruiz DO [Primary Care Provider] - Alin Ortiz MD [Physician] - (office in 2 weeks) Patient Disposition: Home, Self-Care Prognosis: Good Rehab Potential: Good I certify that the patient requires SNF services: No Overall status at discharge: patient is progressing back to baseline Discharge Orders: Discharge Order (Routine); Ordered 02/18/20 Ordered By: Alin Ortiz Pending Pending Pending: Resuscitation Status Full Code Diet GI Soft/Transitional Start TueFeb 14 09 Albuterol/Ipratropium (Duoneb) 3 ml NEB Q4HRT AALIYAH Last Admin: 02/18/20 12:02 Dose: 3 ml Documented by: [email or web address] Admin: 02/18/20 07:13 Dose: 3 ml Documented by: [email or web address] Admin: 02/18/20 04:27 Dose: 3 ml Documented by: Admin: 02/17/20 22:15 Dose: 3 ml Documented by: Admin: 02/17/20 19:30 Dose: 3 ml Documented by: Admin: 02/17/20 15:08 Dose: 3 ml Documented by: Admin: 02/17/20 11:07 Dose: 3 ml Documented by: Admin: 02/17/20 06:56 Dose: 3 ml Documented by: Admin: 02/17/20 03:33 Dose: 3 ml Documented by: Admin: 02/16/20 21:36 Dose: 3 ml Documented by: Admin: 02/16/20 18:10 Dose: 3 ml Documented by: Admin: 02/16/20 14:10 Dose: 3 ml Documented by: Admin: 02/16/20 11:15 Dose: 3 ml Documented by: Admin: 02/16/20 06:44 Dose: 3 ml Documented by: Admin: 02/16/20 03:09 Dose: 3 ml Documented by: Admin: 02/15/20 22:57 Dose: 3 ml Documented by: Admin: 02/15/20 20:00 Dose: 3 ml Documented by: Admin: 02/15/20 15:03 Dose: 3 ml Documented by: Admin: 02/15/20 11:09 Dose: 3 ml Documented by: Admin: 02/15/20 06:35 Dose: 3 ml Documented by: Admin: 02/15/20 03:31 Dose: 3 ml Documented by: Admin: 02/14/20 22:01 Dose: 3 ml Documented by: Admin: 02/14/20 18:13 Dose: 3 ml Documented by: Admin: 02/14/20 15:44 Dose: Not Given Documented by: Admin: 02/14/20 11:20 Dose: Not Given Documented by: RICARDA Calcium Carbonate/Glycine (Tums) 1,000 mg CHEWED Q4HP PRN PRN Reason: Dyspepsia Last Admin: 02/17/20 13:04 Dose: 1,000 mg Documented by: Admin: 02/13/20 15:17 Dose: 1,000 mg Documented by: Admin: 02/13/20 11:21 Dose: 1,000 mg Documented by: BRISEIDA Docusate Sodium (Colace) 100 mg PO BID [facility] Last Admin: 02/18/20 08:12 Dose: Not Given Documented by: Admin: 02/17/20 21:30 Dose: 100 mg Documented by: Admin: 02/17/20 08:50 Dose: Not Given Documented by: Admin: 02/16/20 20:46 Dose: 100 mg Documented by: Admin: 02/16/20 09:42 Dose: Not Given Documented by: Admin: 02/15/20 22:42 Dose: 100 mg Documented by: Admin: 02/15/20 07:56 Dose: 100 mg Documented by: Admin: 02/14/20 20:13 Dose: 100 mg Documented by: Admin: 02/14/20 07:54 Dose: 100 mg Documented by: Admin: 02/13/20 20:38 Dose: 100 mg Documented by: Admin: 02/13/20 08:59 Dose: 100 mg Documented by: Admin: 02/12/20 21:12 Dose: 100 mg Documented by: Admin: 02/12/20 08:27 Dose: 100 mg Documented by: BRISEIDA Furosemide (Lasix) 20 mg IV DAILY [facility] Last Admin: 02/18/20 08:25 Dose: 20 mg Documented by: Admin: 02/17/20 08:51 Dose: 20 mg Documented by: Admin: 02/16/20 09:41 Dose: 20 mg Documented by: CLIVE Hydromorphone HCl (Dilaudid) 1 mg IV Q2HP PRN; Protocol PRN Reason: Per Pain Protocol Last Admin: 02/18/20 08:31 Dose: 1 mg Documented by: Admin: 02/18/20 02:18 Dose: 1 mg Documented by: Admin: 02/17/20 22:40 Dose: 1 mg Documented by: Admin: 02/17/20 18:28 Dose: 1 mg Documented by: Admin: 02/17/20 13:04 Dose: 1 mg Documented by: Admin: 02/17/20 10:45 Dose: 1 mg Documented by: Admin: 02/17/20 06:22 Dose: 1 mg Documented by: Admin: 02/16/20 19:46 Dose: 1 mg Documented by: Admin: 02/16/20 10:47 Dose: 1 mg Documented by: Admin: 02/15/20 18:06 Dose: 1 mg Documented by: Admin: 02/13/20 23:53 Dose: 1 mg Documented by: Admin: 02/13/20 20:39 Dose: 1 mg Documented by: Admin: 02/13/20 17:11 Dose: 1 mg Documented by: Admin: 02/13/20 15:53 Dose: 1 mg Documented by: Admin: 02/13/20 12:08 Dose: 1 mg Documented by: Admin: 02/13/20 09:15 Dose: 1 mg Documented by: Admin: 02/12/20 21:11 Dose: 1 mg Documented by: Admin: 02/12/20 07:52 Dose: 1 mg Documented by: BRISEIDA Piperacillin Sod/Tazobactam (Sod 3.375 gm/ Dextrose) 50 mls @ 100 mls/hr IV Q6H AALIYAH; Protocol Last Admin: 02/18/20 11:42 Dose: 100 mls/hr Documented by: Infusion: 02/18/20 06:25 Dose: 0 mls/hr Documented by: Admin: 02/18/20 05:53 Dose: 100 mls/hr Documented by: Infusion: 02/18/20 00:05 Dose: 100 mls/hr Documented by: Admin: 02/17/20 23:35 Dose: 100 mls/hr Documented by: Infusion: 02/17/20 17:43 Dose: 100 mls/hr Documented by: Admin: 02/17/20 17:13 Dose: 100 mls/hr Documented by: Infusion: 02/17/20 13:15 Dose: 100 mls/hr Documented by: Admin: 02/17/20 12:45 Dose: 100 mls/hr Documented by: Infusion: 02/17/20 11:40 Dose: 0 mls/hr Documented by: Admin: 02/17/20 05:45 Dose: 100 mls/hr Documented by: Infusion: 02/16/20 23:58 Dose: 100 mls/hr Documented by: Admin: 02/16/20 23:28 Dose: 100 mls/hr Documented by: Infusion: 02/16/20 18:17 Dose: 100 mls/hr Documented by: Admin: 02/16/20 17:47 Dose: 100 mls/hr Documented by: Infusion: 02/16/20 12:45 Dose: 100 mls/hr Documented by: Admin: 02/16/20 12:15 Dose: 100 mls/hr Documented by: Infusion: 02/16/20 06:09 Dose: 100 mls/hr Documented by: Admin: 02/16/20 05:39 Dose: 100 mls/hr Documented by: Infusion: 02/16/20 01:26 Dose: 100 mls/hr Documented by: Admin: 02/16/20 00:56 Dose: 100 mls/hr Documented by: Infusion: 02/15/20 18:24 Dose: 100 mls/hr Documented by: Admin: 02/15/20 17:54 Dose: 100 mls/hr Documented by: Infusion: 02/15/20 13:40 Dose: 100 mls/hr Documented by: Admin: 02/15/20 13:10 Dose: 100 mls/hr Documented by: Infusion: 02/15/20 06:20 Dose: 0 mls/hr Documented by: Admin: 02/15/20 05:50 Dose: 100 mls/hr Documented by: Infusion: 02/15/20 00:10 Dose: 0 mls/hr Documented by: Admin: 02/14/20 23:36 Dose: 100 mls/hr Documented by: Infusion: 02/14/20 19:45 Dose: 0 mls/hr Documented by: Admin: 02/14/20 19:14 Dose: 100 mls/hr Documented by: Infusion: 02/14/20 14:07 Dose: 0 mls/hr Documented by: Admin: 02/14/20 13:37 Dose: 100 mls/hr Documented by: Infusion: 02/14/20 06:23 Dose: 0 mls/hr Documented by: Admin: 02/14/20 05:53 Dose: 100 mls/hr Documented by: Infusion: 02/14/20 00:17 Dose: 100 mls/hr Documented by: Admin: 02/13/20 23:47 Dose: 100 mls/hr Documented by: Infusion: 02/13/20 18:30 Dose: 100 mls/hr Documented by: Admin: 02/13/20 18:00 Dose: 100 mls/hr Documented by: Infusion: 02/13/20 17:11 Dose: 0 mls/hr Documented by: Admin: 02/13/20 11:21 Dose: 100 mls/hr Documented by: Infusion: 02/13/20 05:30 Dose: 100 mls/hr Documented by: Admin: 02/13/20 05:00 Dose: 100 mls/hr Documented by: Infusion: 02/13/20 00:12 Dose: 100 mls/hr Documented by: Admin: 02/12/20 23:42 Dose: 100 mls/hr Documented by: Infusion: 02/12/20 18:53 Dose: 100 mls/hr Documented by: Admin: 02/12/20 18:23 Dose: 100 mls/hr Documented by: Infusion: 02/12/20 12:37 Dose: 100 mls/hr Documented by: Admin: 02/12/20 12:07 Dose: 100 mls/hr Documented by: Infusion: 02/12/20 05:51 Dose: 100 mls/hr Documented by: Admin: 02/12/20 05:21 Dose: 100 mls/hr Documented by: Admin: 02/12/20 01:00 Dose: Not Given Documented by: JERLisset Acetaminophen (Ofirmev) 1,000 mg in 100 mls @ 200 mls/hr IV Q6HP PRN; Protocol PRN Reason: Per Pain Protocol/Fever > 101 Last Infusion: 02/15/20 00:55 Dose: 0 mls/hr Documented by: Admin: 02/15/20 00:25 Dose: 200 mls/hr Documented by: Infusion: 02/13/20 18:02 Dose: 0 mls/hr Documented by: Admin: 02/13/20 17:11 Dose: 200 mls/hr Documented by: BILL Sodium Chloride (Sodium Chloride 0.9%) 1,000 mls @ 100 mls/hr IV .Q10H [facility] Last Admin: 02/18/20 02:21 Dose: 100 mls/hr Documented by: Infusion: 02/17/20 14:51 Dose: 100 mls/hr Documented by: Admin: 02/17/20 12:59 Dose: Not Given Documented by: Admin: 02/17/20 04:51 Dose: 100 mls/hr Documented by: Infusion: 02/17/20 03:46 Dose: 100 mls/hr Documented by: Admin: 02/16/20 17:46 Dose: 100 mls/hr Documented by: Infusion: 02/16/20 17:39 Dose: 100 mls/hr Documented by: Admin: 02/16/20 07:39 Dose: 100 mls/hr Documented by: Infusion: 02/16/20 06:28 Dose: 100 mls/hr Documented by: Admin: 02/15/20 22:43 Dose: 100 mls/hr Documented by: LATOYA Lorazepam (Ativan) 1 mg IV Q6HP PRN PRN Reason: ANXIETY/SEDATION Last Admin: 02/15/20 22:41 Dose: 1 mg Documented by: Admin: 02/14/20 20:14 Dose: 1 mg Documented by: Admin: 02/14/20 03:14 Dose: 1 mg Documented by: SEAN Losartan Potassium (Cozaar) 50 mg PO DAILY AALIYAH Last Admin: 02/18/20 08:19 Dose: 50 mg Documented by: Admin: 02/17/20 08:50 Dose: 50 mg Documented by: Admin: 02/16/20 09:41 Dose: 50 mg Documented by: Admin: 02/15/20 07:56 Dose: 50 mg Documented by: Admin: 02/14/20 07:54 Dose: 50 mg Documented by: Admin: 02/13/20 20:39 Dose: 50 mg Documented by: SEAN Metoclopramide HCl (Reglan) 10 mg IV Q6 [facility] Admin: 02/18/20 11:41 Dose: 10 mg Documented by: Admin: 02/18/20 05:53 Dose: 10 mg Documented by: Admin: 02/17/20 23:35 Dose: 10 mg Documented by: Admin: 02/17/20 17:13 Dose: 10 mg Documented by: Admin: 02/17/20 12:45 Dose: 10 mg Documented by: Admin: 02/17/20 05:45 Dose: 10 mg Documented by: Admin: 02/16/20 23:29 Dose: 10 mg Documented by: Admin: 02/16/20 17:47 Dose: 10 mg Documented by: Admin: 02/16/20 12:15 Dose: 10 mg Documented by: Admin: 02/16/20 05:39 Dose: 10 mg Documented by: Admin: 02/16/20 00:57 Dose: 10 mg Documented by: Admin: 02/15/20 17:53 Dose: 10 mg Documented by: Admin: 02/15/20 13:08 Dose: 10 mg Documented by: Admin: 02/15/20 05:50 Dose: 10 mg Documented by: Admin: 02/14/20 23:36 Dose: 10 mg Documented by: Admin: 02/14/20 17:28 Dose: 10 mg Documented by: Admin: 02/14/20 11:46 Dose: 10 mg Documented by: Admin: 02/14/20 05:53 Dose: 10 mg Documented by: Admin: 02/13/20 23:47 Dose: 10 mg Documented by: SEAN Ondansetron HCl (Zofran) 4 mg IV Q6HP PRN PRN Reason: Nausea And Vomiting Last Admin: 02/15/20 19:47 Dose: 4 mg Documented by: Admin: 02/13/20 20:46 Dose: 4 mg Documented by: SEAN Pantoprazole Sodium (Protonix) 40 mg IV Q12H [facility] Last Admin: 02/18/20 08:20 Dose: 40 mg Documented by: Admin: 02/17/20 21:30 Dose: 40 mg Documented by: Admin: 02/17/20 09:21 Dose: 40 mg Documented by: Admin: 02/16/20 20:46 Dose: 40 mg Documented by: Admin: 02/16/20 09:41 Dose: 40 mg Documented by: Admin: 02/15/20 19:47 Dose: 40 mg Documented by: Admin: 02/15/20 07:57 Dose: 40 mg Documented by: Admin: 02/14/20 20:14 Dose: 40 mg Documented by: Admin: 02/14/20 07:51 Dose: 40 mg Documented by: Admin: 02/13/20 21:11 Dose: 40 mg Documented by: SEAN Potassium Chloride (Kdur) 40 meq PO BIDCC [facility] Last Admin: 02/18/20 08:19 Dose: 40 meq Documented by: Admin: 02/17/20 17:13 Dose: 40 meq Documented by: Admin: 02/17/20 08:49 Dose: 40 meq Documented by: Admin: 02/16/20 17:47 Dose: 40 meq Documented by: Admin: 02/16/20 07:44 Dose: 40 meq Documented by: Admin: 02/15/20 17:53 Dose: 40 meq Documented by: Admin: 02/15/20 07:56 Dose: 40 meq Documented by: ROSALINA Senna (Senokot) 2 tab PO HS [facility] Last Admin: 02/17/20 21:30 Dose: Not Given Documented by: Admin: 02/16/20 20:46 Dose: Not Given Documented by: Admin: 02/15/20 22:36 Dose: Not Given Documented by: Admin: 02/14/20 20:13 Dose: 2 tab Documented by: Admin: 02/13/20 20:38 Dose: 2 tab Documented by: Admin: 02/12/20 21:12 Dose: 2 tab Documented by: JUWAN Sodium Chloride (Saline Flush) 10 ml IV Q8 AALIYAH Last Admin: 02/18/20 05:54 Dose: Not Given Documented by: Admin: 02/17/20 21:30 Dose: Not Given Documented by: Admin: 02/17/20 15:45 Dose: Not Given Documented by: Admin: 02/17/20 05:45 Dose: Not Given Documented by: Admin: 02/16/20 20:46 Dose: Not Given Documented by: Admin: 02/16/20 14:32 Dose: Not Given Documented by: Admin: 02/16/20 05:07 Dose: Not Given Documented by: Admin: 02/15/20 22:42 Dose: 10 ml Documented by: Admin: 02/15/20 13:10 Dose: Not Given Documented by: Admin: 02/15/20 05:50 Dose: 10 ml Documented by: Admin: 02/14/20 20:14 Dose: 10 ml Documented by: Admin: 02/14/20 13:44 Dose: Not Given Documented by: Admin: 02/14/20 05:53 Dose: Not Given Documented by: Admin: 02/13/20 23:09 Dose: Not Given Documented by: Admin: 02/13/20 15:18 Dose: Not Given Documented by: JAIROSFIAudrey Admin: 02/13/20 05:01 Dose: 10 ml Documented by: DACLAKHWINDER Admin: 02/12/20 21:14 Dose: 10 ml Documented by: JUWAN Shift Summary 02/18/20 03:57 Shift Summary by Talha Montero Pt has again rested well. ABD pain well controlled w/ IV Dilaudid 1mg given x3 - last @ 0220. No N/V. No BM tonight. NS infusing to his LT upper arm @ 100ml/hr. ABD remains distended & firm. 2x ABD lap sites w/ mariana & film dressing in place, and lower mid ABD ELISEO drain w/ drain sponge & film dressing. Dsng changed to ELISEO site - serous drainage around tube, and output from ELISEO - total ELISEO output 15ml. Pt up to BR to void, and voiding per urinal @ bedside. (I) in bed mobility, & SBA for AMB w/o device to & from BR, as well as out in hallx1. Pt also sat up in chair x1 this shift. VS - WNL w/ O2 1L via N/C. He is A&O x4, calm, pleasant, & cooperative. Initialized on 02/18/20 03:57 - END OF NOTE
== END 2020-02-18 14:58 | disposition home or self-care (01) | DRG 341 ==
LOC: ED 15:09 → MEDSUR 15:09
PROVIDERS: ADMIT Family Medicine Adult Medicine; ATTEND Family Medicine Adult Medicine